=== PATIENT | male | born 1960 | race Caucasian/White ===

== ENCOUNTER 2016-09-30 18:22 | Emergency (ER) | payer OTHER ==
[~2016-09-30] VITALS: Ht 180.3 cm; Wt 65.8 kg
--- NOTE | 2016-09-30 19:20 | ED Abdominal Pain ---
General Chief Complaint: -Male Stated Complaint: PT FELL X3 DAYS AGO/HERNIA Nursing Triage Note: PT REPORTS HE FELL ON 09/27/16 WHILE IN THE SHOWER AT [facility] INJURING HIS R TESTICLE. HE REPORTS SEEING JOSELIN GRAY AT [facility] TODAY AND WAS DX WITH INGUINAL HERNIA. HE REPORTS PAIN AND SWELLING TO AFFECTED AREA. Sepsis Screen: No Definite Risk Source of Information: Patient Exam Limitations: No Limitations History of Present Illness Time Seen By Provider: 19:16 Initial Comments patient reports he was in the shower and fell about 4 days ago on Tuesday and at that time he felt something fall into his scrotum large mass that was quite painful at the time. He has had a history of a hernia on his left side when he was 16 years old status post repair and is never bothered him since. He went to urgent care via [facility] and the personally saw him there told him he would maybe need surgery to repair this and sent him to the ER. He says he is having a mild amount of discomfort whenever he stands up or moves around with it but it is not painful just lying in bed and he does not require any pain meds. He denies nausea. He had a bowel movement this morning that was easy to pass. He is having no problems urinating or discharge. He denies fevers chills or nausea. Allergies and Home Medications Allergies Coded Allergies: No Known Drug Allergies (Unverified , 11/03/15) Home Medications No Active Prescriptions or Reported Meds Review of Systems Constitutional: No chills, No diaphoresis, No fever Respiratory: Denies Shortness of Air, Denies Wheezing Cardiovascular: Denies Chest Pain, Denies Irregular Heart Rate, Denies Lightheadedness, Denies Palpitations, Denies Syncope Gastrointestinal: Denies Abdomen Distended, Denies Abdominal Pain, Denies Constipated, Denies Diarrhea, Denies Nausea Genitourinary: See HPI, Denies Burning, Denies Discharge, Denies Drainage, Pain Musculoskeletal: No back pain, No joint pain Skin: No pruritus, No rash Psychiatric/Neurological: Denies Headache, Denies Numbness Past [id number]-[id number] Hx Patient Social History Alcohol Use: Denies Use Recreational Drug Use: No Smoking Status: Current Everyday Smoker Type Used: Cigarettes 2nd Hand Smoke Exposure: No Recent Foreign Travel: No Contact w/Someone Who Travel: No Recent Infectious Disease Expo: No Recent Hopitalizations: No Surgeries HX Surgeries: No Respiratory Hx Respiratory Disorders: Yes Respiratory Disorders: Emphysema Cardiovascular Hx Cardiac Disorders: No Neurological Hx Neurological Disorders: No Reproductive System Hx Reproductive Disorders: No Genitourinary Hx Genitourinary Disorders: No Gastrointestinal Hx Gastrointestinal Disorders: No Musculoskeletal Hx Musculoskeletal Disorders: No Endocrine Hx Endocrine Disorders: No HEENT HX ENT Disorders: No Cancer Hx Cancer: No Psychosocial Hx Psychiatric Problems: No Integumentary HX Skin/Integumentary Disorder: No Blood Transfusions Hx Blood Disorders: No Physical Exam Vital Signs VS - Last 72 Hours, by Label 09/30/16 09/30/16 18:40 22:55 Temp 97.4 97.0 Pulse 82 75 Resp 18 18 B/P (MAP) 174/96 Pulse Ox 97 97 O2 Delivery Room Air Room Air Capillary Refill : Less Than 3 Seconds General Appearance: WD/WN, no apparent distress HEENT: PERRL/EOMI, pharynx normal Respiratory: lungs clear, normal breath sounds Cardiovascular: regular rate, rhythm, no edema Gastrointestinal: normal bowel sounds, non tender, soft, hernia (right sided direct inguinal hernia with soft mobile rubbery mass in scrotum), No mass Genital/Rectal: tenderness (mild), other (to normal size testes and uncircumcised penis without discharge pain lesion) Extremities: normal inspection, normal capillary refill Neurologic/Psychiatric: alert, oriented x 3 Skin: normal color, warm/dry Focused Exam Lactic Acid Level Laboratory Tests Test 09/30/16 19:52 Lactic Acid Level 1.25 MMOL/L (0.50-2.00) Progress/Results/Core Measures Results/Orders Lab Results Laboratory Tests Test 09/30/16 19:09 09/30/16 19:52 Range/Units Urine Color YELLOW Urine Clarity CLEAR Urine pH 7 5-9 Urine Specific Dike 1.010 L 1.016-1.022 Urine Protein NEGATIVE NEGATIVE Urine Glucose (UA) NEGATIVE NEGATIVE Urine Ketones NEGATIVE NEGATIVE Urine Nitrite NEGATIVE NEGATIVE Urine Bilirubin NEGATIVE NEGATIVE Urine Urobilinogen NORMAL NORMAL MG/DL Urine Leukocyte Esterase NEGATIVE NEGATIVE Urine RBC (Auto) NEGATIVE NEGATIVE Urine RBC RARE /HPF Urine WBC RARE /HPF Urine Crystals NONE /LPF Urine Bacteria NEGATIVE /HPF Urine Casts NONE /LPF Urine Mucus NEGATIVE /LPF Urine Culture Indicated NO White Blood Count 9.1 4.3-11.0 10^3/uL Red Blood Count 4.93 4.35-5.85 10^6/uL Hemoglobin 15.5 13.3-17.7 G/DL Hematocrit 44 40-54 % Mean Corpuscular Volume 90 80-99 FL Mean Corpuscular Hemoglobin 31 25-34 PG Mean Corpuscular Hemoglobin Concent 35 32-36 G/DL Red Cell Distribution Width 12.6 10.0-14.5 % Platelet Count 260 130-400 10^3/uL Mean Platelet Volume 9.5 7.4-10.4 FL Neutrophils (%) (Auto) 68 42-75 % Lymphocytes (%) (Auto) 23 12-44 % Monocytes (%) (Auto) 7 0-12 % Eosinophils (%) (Auto) 1 0-10 % Basophils (%) (Auto) 0 0-10 % Neutrophils # (Auto) 6.2 1.8-7.8 X 10^3 Lymphocytes # (Auto) 2.1 1.0-4.0 X 10^3 Monocytes # (Auto) 0.6 0.0-1.0 X 10^3 Eosinophils # (Auto) 0.1 0.0-0.3 10^3/uL Basophils # (Auto) 0.0 0.0-0.1 10^3/uL Sodium Level 139 135-145 MMOL/L Potassium Level 4.1 3.6-5.0 MMOL/L Chloride Level 106 98-107 MMOL/L Carbon Dioxide Level 25 21-32 MMOL/L Anion Gap 8 5-14 MMOL/L Blood Urea Nitrogen 16 7-18 MG/DL Creatinine 0.87 0.60-1.30 MG/DL Estimat Glomerular Filtration Rate > 60 BUN/Creatinine Ratio 18 Glucose Level 134 H 70-105 MG/DL Lactic Acid Level 1.25 0.50-2.00 MMOL/L Calcium Level 9.3 8.5-10.1 MG/DL Total Bilirubin 0.2 0.1-1.0 MG/DL Aspartate Amino Transf (AST/SGOT) 20 5-34 U/L Alanine Aminotransferase (ALT/SGPT) 29 0-55 U/L Alkaline Phosphatase 84 40-136 U/L Total Protein 7.2 6.4-8.2 GM/DL Albumin 3.9 3.2-4.5 GM/DL My Orders Orders - LUPE,KOLTON J Ua Culture If Indicated (09/30/16 19:11) Cbc With Automated Diff (09/30/16 19:21) Comprehensive Metabolic Panel (09/30/16 19:21) Lactic Acid Analyzer (09/30/16 19:21) Us Scrotum (Testicle) [id number] (09/30/16 19:21) Ns Iv 1000 Ml (Sodium Chloride 0.9%) (09/30/16 20:17) Ct Abdomen/Pelvis W (09/30/16 20:32) Iohexol Injection (Omnipaque 350 Mg/Ml 1 (09/30/16 20:45) Ns (Ivpb) (Sodium Chloride 0.9% Ivpb Bag (09/30/16 20:45) Medications Given in ED Current Medications Medications Dose Ordered Sig/Josh Route Start Time Stop Time Status Last Admin Dose Admin Iohexol 100 ml ONCE ONCE IV 09/30/16 20:45 09/30/16 20:46 DC 09/30/16 21:32 100 ML Sodium Chloride 100 ml ONCE ONCE IV 09/30/16 20:45 09/30/16 20:46 DC 09/30/16 21:32 80 ML Sodium Chloride 1,000 ml @ 0 mls/hr Q0M ONCE IV 09/30/16 20:17 09/30/16 20:18 DC 09/30/16 20:30 0 MLS/HR Vital Signs/I&O Vital Sign - Last 12Hours 09/30/16 09/30/16 18:40 22:55 Temp 97.4 97.0 Pulse 82 75 Resp 18 18 B/P (MAP) 174/96 Pulse Ox 97 97 O2 Delivery Room Air Room Air Intake and Output 10/01/16 00:00 Intake Total 1000 ml Balance 1000 ml Blood Pressure Mean: 122 Progress Note : Time: 01:13 Progress Note Ascertain there was no evidence of bowel incarceration. Spoke with surgeon and will have him set up for surgery follow-up Tuesday. He will call tomorrow morning to his PCP and get the adrenal mass worked up. Diagnostic Imaging Diagonstic Imaging: Ultrasound Plain Films/CT/US/NM/MRI: other (scrotum) Comments VIA [facility], [facility]. [place], [place] NAME: FAHEEM RICHEY MED REC#: [id number] PT STATUS: REG ER : 1960 PHYSICIAN: KOLTON ANDRADE MD ADMIT DATE: 09/30/16/ER Draft Date of Exam:09/30/16 US SCROTUM (Testicle) [id number] INDICATION: Question right testicular hernia. EXAMINATION: Ultrasound scrotum dated 09/30/2016. FINDINGS: The right testicle is 3.6 x 1.4 x 2.7 cm in size and the left is 3 x 1.7 x 2.2 cm. There is bilateral symmetric blood flow to the testes. The epididymides are bilaterally symmetric as well. Per the student recruiter, evaluation is limited due to the patient's inability to hold still for imaging. There does appear to be an abnormality extending into the right inguinal region per the student recruiter; likely a hernia, but no peristalsis is seen to suggest bowel. IMPRESSION: 1. Likely right-sided inguinal hernia although the images are limited due to motion. Definite bowel extension into the inguinal region not seen but difficult to exclude on these images and clinical follow-up would be recommended with further imaging as clinically warranted. 2. No acute abnormality seen in either testicle. Dictated on workstation # [id number] Dict: 09/30/161944 Trans: 09/30/161951 [id number] Interpreted by: SHARON HOROWITZ MD Electronically signed by: Reviewed: Reviewed by Pa Diagonstic Imaging: CT Plain Films/CT/US/NM/MRI: abdomen, pelvis Comments NAME: FAHEEM RICHEY Treva MED REC#: [id number] PT STATUS: REG ER : 1960 PHYSICIAN: KOLTON ANDRADE MD ADMIT DATE: 09/30/16/ER Draft Date of Exam:09/30/16 CT ABDOMEN/PELVIS W INDICATION: Fell four days ago. Pain and swelling. EXAMINATION: CT of the abdomen and the pelvis, 09/30/2016. COMPARISON: Correlation made to recent sonogram of the scrotum. FINDINGS: Within the right aspect of the scrotal region there is a very large predominantly fatty appearing area, likely a fat-containing hernia. This extends down towards the scrotum. Its visualized aspects measure at least 5.3 cm in transverse dimension and 5.4 cm in AP dimension. This appears to extend from the intraperitoneal fat contiguous with the inguinal canal, consistent with a very large hernia. Given the recent injury, it could be a posttraumatic finding but clinical correlation is recommended. Within the remaining abdomen and pelvis the liver demonstrates mild fatty infiltration. The gallbladder and spleen appear normal. The left adrenal gland contains a large heterogeneous lesion which measures 2.7 cm in greatest dimension. Right adrenal gland is unremarkable. Kidneys contain tiny cystic changes too small to characterize at this time. There are multiple nonspecific enlarged lymph nodes within the retroperitoneum. The pancreas is unremarkable. Bowel loops demonstrate findings of constipation. The appendix is unremarkable. There is diffuse atherosclerotic disease along the aorta and its branches. The small bowel loops demonstrate mild wall thickening proximally, nonspecific, perhaps due to enteritis, correlate with symptoms. No free air or free fluid is seen in the abdomen or pelvis. There is emphysematous disease in the visualized lungs with atelectasis or scar in the medial right lung base. There is no acute osseous abnormality. IMPRESSION: 1. Large fatty lesion in the right scrotum and inguinal canal, likely all due to a fat-containing inguinal hernia, which could be posttraumatic given the history. Clinical correlation and followup is recommended. A fatty mass is felt to be less likely but again followup should be performed. 2. Lymphadenopathy within the retroperitoneum which is a nonspecific finding and could be on the basis of an inflammatory or infectious process but a metastatic process is not excluded. 3. Lesion in the left adrenal gland. A dedicated adrenal protocol CT is recommended for better characterization. 4. Other incidental findings within the visualized abdomen and pelvis, possible changes of enteritis are noted, as discussed above, correlate with symptoms. Dictated on workstation # [id number] Dict: 09/30/16 2154 Trans: 09/30/16 2210 [facility] [id number] Interpreted by: SHARON HOROWITZ MD Reviewed: Reviewed by Me Consults Consults : Consulting Physician: CHRIS CONLEY DO Consults Notes Discussed the case and he recommends calling the office in the morning and getting set up for an appointment Tuesday. Departure Impression Impression: Primary Impression: Direct inguinal hernia Disposition: 01 HOME, SELF-CARE Condition: Stable Departure-Patient Inst. Decision time for Depature: 22:49 Referrals: LUIS F PAGE DO (PCP) Primary Care Physician ISAAC,TANNER T DIRECTOR CAMP (Family) Primary Care Physician Patient Instructions: Groin Hernia (DC) Add. Discharge Instructions: You do have a hernia of fat tissue down into your scrotum that does not appear to contain any bowel. If he started having a hard time passing a bowel movement or eat or having exquisite amount of pain that is not controlled with just Tylenol ibuprofen or gentle heat applied to the area then you should probably return to the ER immediately as this could be an emergency. I spoke with Dr. Conley, General Surgery who recommends that you call his office in the morning at [phone]. Ask them for an appointment to see the surgeon on Tuesday. On CT scan there was an incidental finding of a mass on your adrenal gland that will need to be addressed by Dr. Smith at [facility]. Please call the office tomorrow morning and get an appointment within next 1-2 weeks to work this up. It will require more imaging, specifically an adrenal study. All discharge instructions reviewed with patient and/or family. Voiced understanding. Scripts No Active Prescriptions or Reported Meds Copy Copies To 1: LUIS F PAGE TITUS J Sep 30, 2016 19:20
[2016-09-30 19:29] LABS: BILIRUBIN,URINE NEGATIVE (NEGATIVE); KETONES,URINE NEGATIVE (NEGATIVE); LEUKOCYTE ESTERASE ,URINE NEGATIVE (NEGATIVE); NITRITE,URINE NEGATIVE (NEGATIVE); PH,URINE 7 (5-9); PROTEIN,URINE NEGATIVE (NEGATIVE); UROBILINOGEN,URINE NORMAL (NORMAL)
[2016-09-30 19:30] LABS: WBC,URINE RARE /HPF
--- NOTE | 2016-09-30 19:53 | Diagnostic Imaging Report ---
INDICATION: Question right testicular hernia. EXAMINATION: Ultrasound scrotum dated 09/30/2016. FINDINGS: The right testicle is 3.6 x 1.4 x 2.7 cm in size and the left is 3 x 1.7 x 2.2 cm. There is bilateral symmetric blood flow to the testes. The epididymides are bilaterally symmetric as well. Per the senior paralegal, evaluation is limited due to the patient's inability to hold still for imaging. There does appear to be an abnormality extending into the right inguinal region per the senior paralegal; likely a hernia, but no peristalsis is seen to suggest bowel. IMPRESSION: 1. Likely right-sided inguinal hernia although the images are limited due to motion. Definite bowel extension into the inguinal region not seen but difficult to exclude on these images and clinical follow-up would be recommended with further imaging as clinically warranted. 2. No acute abnormality seen in either testicle. Dictated by: Dictated on workstation # [id number]
[2016-09-30 20:02] LABS: BASOPHILS % (AUTO) 0 % (0-10); EOSINOPHILS # (AUTO) 0.1 10^3/uL (0.0-0.3); EOSINOPHILS % (AUTO) 1 % (0-10); LYMPHOCYTES # (AUTO) 2.1 X 10^3 (1.0-4.0); LYMPHOCYTES % (AUTO) 23 % (12-44); MEAN CORPUSCULAR HEMOGLOBIN 31 PG (25-34); MEAN CORPUSCULAR HGB CONC 35 G/DL (32-36); MEAN CORPUSCULAR VOLUME 90 FL (80-99); MEAN PLATELET VOLUME 9.5 FL (7.4-10.4); MONOCYTES # (AUTO) 0.6 X 10^3 (0.0-1.0); MONOCYTES % (AUTO) 7 % (0-12); NEUTROPHILS # (AUTO) 6.2 X 10^3 (1.8-7.8); NEUTROPHILS % (AUTO) 68 % (42-75); PLATELET COUNT 260 10^3/uL (130-400); RED BLOOD COUNT 4.93 10^6/uL (4.35-5.85); RED CELL DISTRIBUTION WIDTH 12.6 % (10.0-14.5); WHITE BLOOD COUNT 9.1 10^3/uL (4.3-11.0)
[2016-09-30] MEDS ORDERED: NS IV 1000 ML 1,000 ML IV ONE (20:17)
[2016-09-30 20:23] LABS: ALANINE AMINOTRANSFERASE 29 U/L (0-55); ALBUMIN 3.9 GM/DL (3.2-4.5); ANION GAP 8 MMOL/L (5-14); ASPARTATE AMINO TRANSFERASE 20 U/L (5-34); BILIRUBIN,TOTAL 0.2 MG/DL (0.1-1.0); BLOOD UREA NITROGEN 16 MG/DL (7-18); BUN/CREATININE RATIO 18; CALCIUM 9.3 MG/DL (8.5-10.1); CARBON DIOXIDE 25 MMOL/L (21-32); CHLORIDE 106 MMOL/L (98-107); CREATININE SERUM 0.87 MG/DL (0.60-1.30); GFR ESTIMATED > 60; GLUCOSE 134 MG/DL (70-105); POTASSIUM 4.1 MMOL/L (3.6-5.0); SODIUM 139 MMOL/L (135-145); TOTAL PROTEIN 7.2 GM/DL (6.4-8.2)
[2016-09-30] MEDS ORDERED: NS 100 ML (IVPB) BAG IV ONE (20:45)
[2016-09-30] MEDS ORDERED: IOHEXOL 350 MG/ML 100 ML (OMNIPAQUE 350) VIAL IV ONE (20:45)
--- NOTE | 2016-09-30 22:10 | Diagnostic Imaging Report ---
INDICATION: Fell four days ago. Pain and swelling. EXAMINATION: CT of the abdomen and the pelvis, 09/30/2016. COMPARISON: Correlation made to recent sonogram of the scrotum. FINDINGS: Within the right aspect of the scrotal region there is a very large predominantly fatty appearing area, likely a fat-containing hernia. This extends down towards the scrotum. Its visualized aspects measure at least 5.3 cm in transverse dimension and 5.4 cm in AP dimension. This appears to extend from the intraperitoneal fat contiguous with the inguinal canal, consistent with a very large hernia. Given the recent injury, it could be a posttraumatic finding but clinical correlation is recommended. Within the remaining abdomen and pelvis the liver demonstrates mild fatty infiltration. The gallbladder and spleen appear normal. The left adrenal gland contains a large heterogeneous lesion which measures 2.7 cm in greatest dimension. Right adrenal gland is unremarkable. Kidneys contain tiny cystic changes too small to characterize at this time. There are multiple nonspecific enlarged lymph nodes within the retroperitoneum. The pancreas is unremarkable. Bowel loops demonstrate findings of constipation. The appendix is unremarkable. There is diffuse atherosclerotic disease along the aorta and its branches. The small bowel loops demonstrate mild wall thickening proximally, nonspecific, perhaps due to enteritis, correlate with symptoms. No free air or free fluid is seen in the abdomen or pelvis. There is emphysematous disease in the visualized lungs with atelectasis or scar in the medial right lung base. There is no acute osseous abnormality. IMPRESSION: 1. Large fatty lesion in the right scrotum and inguinal canal, likely all due to a fat-containing inguinal hernia, which could be posttraumatic given the history. Clinical correlation and followup is recommended. A fatty mass is felt to be less likely but again followup should be performed. 2. Lymphadenopathy within the retroperitoneum which is a nonspecific finding and could be on the basis of an inflammatory or infectious process but a metastatic process is not excluded. 3. Lesion in the left adrenal gland. A dedicated adrenal protocol CT is recommended for better characterization. 4. Other incidental findings within the visualized abdomen and pelvis, possible changes of enteritis are noted, as discussed above, correlate with symptoms. Dictated by: Dictated on workstation # [id number]
[2016-09-30 22:55] VITALS: BP 130/96
--- OUTSIDE RECORDS SUMMARY | 2016-10-05 04:42 | XMS REPORT | Continuity of Care Document ---
Author Author [facility] Organization [facility] Address Unknown Phone Unavailable Allergies Active Description Code Type Severity Reaction Onset Reported/Identified Relationship to Patient Clinical Status Yes codeine Drug Allergy N/A N/A 07/18/2013 Yes No Known Drug Allergies [id number] Drug Allergy Unknown N/ A 11/03/2015 Medications Problems Date Dx Coded Attending Type Code Diagnosis Diagnosed By 07/18/2013 OLVIN PATRICK MD N 491.21 BRONCHITIS AECB 07/18/2013 OLVIN PATRICK MD N 496 CHRONIC AIRWAY OBSTRUCTION NOT ELSEWHERE CLASSIFIED 07/18/2013 OLVIN PATRICK MD N 715.16 OSTEOARTHROSIS LOCALIZED PRIMARY INVOLVING LOWER LEG 07/18/2013 OLVIN PATRICK MD N 726.19 OTHER SPECIFIED DISORDERS OF BURSAE AND TENDONS IN SHOULDER REGION 07/18/2013 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, 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 L 491.21 BRONCHITIS AECB 07/18/2013 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, LEATHA L 496 CHRONIC AIRWAY OBSTRUCTION NOT ELSEWHERE CLASSIFIED 07/18/2013 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, 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 L 715.16 OSTEOARTHROSIS LOCALIZED PRIMARY INVOLVING LOWER LEG 07/18/2013 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, 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 L 726.19 OTHER SPECIFIED DISORDERS OF BURSAE AND TENDONS IN SHOULDER REGION 07/19/2013 OLVIN PATRICK MD N 272.4 HYPERLIPIDEMIA 07/19/2013 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, 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 L 272.4 HYPERLIPIDEMIA 03/12/2014 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, 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 L 719.46 PAIN IN JOINT INVOLVING LOWER LEG 11/03/2015 TANNER KAMARA DO, Ot F12.10 CANNABIS ABUSE, UNCOMPLICATED 11/03/2015 TANNER KAMARA DO, Ot F15.10 OTHER STIMULANT ABUSE, UNCOMPLICATED 11/03/2015 TANNER KAMARA DO Ot R55 SYNCOPE AND COLLAPSE 11/04/2015 TANNER KAMARA DO, Ot F12.10 CANNABIS ABUSE, UNCOMPLICATED 11/04/2015 ANH DO, TANNER D Ot F15.10 OTHER STIMULANT ABUSE, UNCOMPLICATED 11/04/2015 TANNER KAMARA DO Ot R55 SYNCOPE AND COLLAPSE 11/05/2015 TANNER KAMARA DO Ot F12.10 CANNABIS ABUSE, UNCOMPLICATED 11/05/2015 TANNER KAMARA DO Ot F15.10 OTHER STIMULANT ABUSE, UNCOMPLICATED 11/05/2015 TANNER KAMARA DO Ot R55 SYNCOPE AND COLLAPSE Procedures Code Description [place] [address] ROUTINE VENIPUNCTURE 07/18/2013 38713 A1C (IN-HOUSE) 00967 LIPID PANEL 07/18 21139 XRAY KNEE RIGHT 3 VIEWS 07/18/2013 89131 OXIMETRY 2013 84642 XRAY KNEE LEFT 3 VIEWS 03/12/2014 JAYY RUTH 03/12/2014 Results Test Result Range Complete blood count (CBC) with automated white blood cell (WBC) differential - 11/03/15 13:20 Blood leukocytes automated count (number/volume) 4.9 10*3/ uL 4.3-11.0 Blood erythrocytes automated count (number/volume) 4.61 10*6 /uL 4.35-5.85 Venous blood hemoglobin measurement (mass/volume) 14.7 g/dL 13.3-17.7 Blood hematocrit (volume fraction) 42 % 40-54 Automated erythrocyte mean corpuscular volume 90 [foz_us] 80-99 Automated erythrocyte mean corpuscular hemoglobin (mass per erythrocyte) 32 pg 25-34 Automated erythrocyte mean corpuscular hemoglobin concentration measurement ( mass/volume) 35 g/dL 32-36 Automated erythrocyte distribution width ratio 13.1 % 10.0-14.5 Automated blood platelet count (count/volume) 258 10*3/uL 130-400 Automated blood platelet mean volume measurement 9.3 [foz_us ] 7.4-10.4 Automated blood neutrophils/100 leukocytes 58 % 42-75 Automated blood lymphocytes/100 leukocytes 28 % 12-44 Blood monocytes/100 leukocytes 10 % 0-12 Automated blood eosinophils/100 leukocytes 4 % 0-10 Automated blood basophils/100 leukocytes 1 % 0-10 Blood neutrophils automated count (number/volume) 2.8 10*3 1.8-7.8 Blood lymphocytes automated count (number/volume) 1.4 10*3 1.0-4.0 Blood monocytes automated count (number/volume) 0.5 10*3 0.0-1.0 Automated eosinophil count 0.2 10*3/uL 0.0-0.3 Automated blood basophil count (count/volume) 0.0 10*3/uL 0.0-0.1 Fibrin D-dimer FEU measurement in platelet poor plasma (mass/volume) - 13:20 Fibrin D-dimer FEU measurement in platelet poor plasma (mass/volume) < ug/mL 0.00-0.49 Comprehensive metabolic panel - 11/03/15 13:20 Serum or plasma sodium measurement (moles/volume) 135 mmol/ L 135-145 Serum or plasma potassium measurement (moles/volume) 3.6 mmol/L 3.6-5.0 Serum or plasma chloride measurement (moles/volume) 105 mmol /L 98-107 Carbon dioxide 26 mmol/L 21-32 Serum or plasma anion gap determination (moles/volume) 4 mmol/L 5-14 Serum or plasma urea nitrogen measurement (mass/volume) 12 mg/dL 7-18 Serum or plasma creatinine measurement (mass/volume) 0.79 mg /dL 0.60-1.30 Serum or plasma urea nitrogen/creatinine mass ratio 15 NRG Serum or plasma creatinine measurement with calculation of estimated glomerular filtration rate > NRG Serum or plasma glucose measurement (mass/volume) 136 mg/dL 70-105 Serum or plasma calcium measurement (mass/volume) 8.1 mg/dL 8.5-10.1 Serum or plasma total bilirubin measurement (mass/volume) 0.3 mg/dL 0.1-1.0 Serum or plasma alkaline phosphatase measurement (enzymatic activity/volume) 78 U/L 40-136 Serum or plasma aspartate aminotransferase measurement (enzymatic activity/ volume) 14 U/L 5-34 Serum or plasma alanine aminotransferase measurement (enzymatic activity/volume ) 14 U/L 0-55 Serum or plasma protein measurement (mass/volume) 6.2 g/dL 6.4-8.2 Serum or plasma albumin measurement (mass/volume) 3.5 g/dL 3.2-4.5 Magnesium - 11/03/15 13:20 Magnesium 2.0 mg/dL 1.8-2.4 Serum or plasma creatine kinase measurement (enzymatic activity/volume) - 11/02 13:20 Serum or plasma creatine kinase measurement (enzymatic activity/volume) 99 U/L 30-200 Serum or plasma troponin i.cardiac measurement (mass/volume) - 11/03/15 13:20 Serum or plasma troponin i.cardiac measurement (mass/volume) < ng/mL <0.30 Serum or plasma ethanol measurement (mass/volume) - 11/03/15 13:20 Serum or plasma ethanol measurement (mass/volume) < mg/dL <10 Complete urinalysis with reflex to culture - 11/03/15 15:21 Urine color determination YELLOW NRG Urine clarity determination CLEAR NRG Urine pH measurement by test strip 7 5- 9 Specific gravity of urine by test strip 1.010 1.016-1.022 Urine protein assay by test strip, semi-quantitative NEGATIVE NEGATIVE Urine glucose detection by automated test strip NEGATIVE NEGATIVE Erythrocytes detection in urine sediment by light microscopy NEGATIVE NEGATIVE Urine ketones detection by automated test strip NEGATIVE NEGATIVE Urine nitrite detection by test strip NEGATIVE NEGATIVE Urine total bilirubin detection by test strip NEGATIVE NEGATIVE Urine urobilinogen measurement by automated test strip (mass/volume) NORMAL NORMAL Urine leukocyte esterase detection by dipstick NEGATIVE NEGATIVE Automated urine sediment erythrocyte count by microscopy (number/high power field) NONE NRG Automated urine sediment leukocyte count by microscopy (number/high power field ) NONE NRG Bacteria detection in urine sediment by light microscopy NEGATIVE NRG Squamous epithelial cells detection in urine sediment by light microscopy NONE NRG Crystals detection in urine sediment by light microscopy NONE NRG Casts detection in urine sediment by light microscopy NONE NRG Mucus detection in urine sediment by light microscopy NEGATIVE NRG Complete urinalysis with reflex to culture NO NRG Urine drug screening test - 11/03/15 15:21 Urine acetaminophen detection by screening method NEGATIVE NEGATIVE Urine phencyclidine detection by screening method NEGATIVE NEGATIVE Urine benzodiazepines detection by screening method NEGATIVE NEGATIVE Urine cocaine detection NEGATIVE NEGATIVE Urine amphetamines detection by screening method NEGATIVE NEGATIVE Urine methamphetamine detection by screening method POSITIVE NEGATIVE Urine cannabinoids detection by screening method POSITIVE NEGATIVE Urine opiates detection by screening method NEGATIVE NEGATIVE Urine barbiturates detection NEGATIVE NEGATIVE Screening urine tricyclic antidepressants detection NEGATIVE NEGATIVE Urine methadone detection by screening method NEGATIVE NEGATIVE Complete urinalysis with reflex to culture - 09/30/16 19:09 Urine color determination YELLOW NRG Urine clarity determination CLEAR NRG Urine pH measurement by test strip 7 5- 9 Specific gravity of urine by test strip 1.010 1.016-1.022 Urine protein assay by test strip, semi-quantitative NEGATIVE NEGATIVE Urine glucose detection by automated test strip NEGATIVE NEGATIVE Erythrocytes detection in urine sediment by light microscopy NEGATIVE NEGATIVE Urine ketones detection by automated test strip NEGATIVE NEGATIVE Urine nitrite detection by test strip NEGATIVE NEGATIVE Urine total bilirubin detection by test strip NEGATIVE NEGATIVE Urine urobilinogen measurement by automated test strip (mass/volume) NORMAL NORMAL Urine leukocyte esterase detection by dipstick NEGATIVE NEGATIVE Automated urine sediment erythrocyte count by microscopy (number/high power field) RARE NRG Automated urine sediment leukocyte count by microscopy (number/high power field ) RARE NRG Bacteria detection in urine sediment by light microscopy NEGATIVE NRG Crystals detection in urine sediment by light microscopy NONE NRG Casts detection in urine sediment by light microscopy NONE NRG Mucus detection in urine sediment by light microscopy NEGATIVE NRG Complete urinalysis with reflex to culture NO NRG Complete blood count (CBC) with automated white blood cell (WBC) differential - 09/30/16 19:52 Blood leukocytes automated count (number/volume) 9.1 10*3/ uL 4.3-11.0 Blood erythrocytes automated count (number/volume) 4.93 10*6 /uL 4.35-5.85 Venous blood hemoglobin measurement (mass/volume) 15.5 g/dL 13.3-17.7 Blood hematocrit (volume fraction) 44 % 40-54 Automated erythrocyte mean corpuscular volume 90 [foz_us] 80-99 Automated erythrocyte mean corpuscular hemoglobin (mass per erythrocyte) 31 pg 25-34 Automated erythrocyte mean corpuscular hemoglobin concentration measurement ( mass/volume) 35 g/dL 32-36 Automated erythrocyte distribution width ratio 12.6 % 10.0-14.5 Automated blood platelet count (count/volume) 260 10*3/uL 130-400 Automated blood platelet mean volume measurement 9.5 [foz_us ] 7.4-10.4 Automated blood neutrophils/100 leukocytes 68 % 42-75 Automated blood lymphocytes/100 leukocytes 23 % 12-44 Blood monocytes/100 leukocytes 7 % 0-12 Automated blood eosinophils/100 leukocytes 1 % 0-10 Automated blood basophils/100 leukocytes 0 % 0-10 Blood neutrophils automated count (number/volume) 6.2 10*3 1.8-7.8 Blood lymphocytes automated count (number/volume) 2.1 10*3 1.0-4.0 Blood monocytes automated count (number/volume) 0.6 10*3 0.0-1.0 Automated eosinophil count 0.1 10*3/uL 0.0-0.3 Automated blood basophil count (count/volume) 0.0 10*3/uL 0.0-0.1 Blood lactic acid measurement (moles/volume) - 09/30/16 19:52 Blood lactic acid measurement (moles/volume) 1.25 mmol/L 0.50-2.00 Comprehensive metabolic panel - 09/30/16 19:52 Serum or plasma sodium measurement (moles/volume) 139 mmol/ L 135-145 Serum or plasma potassium measurement (moles/volume) 4.1 mmol/L 3.6-5.0 Serum or plasma chloride measurement (moles/volume) 106 mmol /L 98-107 Carbon dioxide 25 mmol/L 21-32 Serum or plasma anion gap determination (moles/volume) 8 mmol/L 5-14 Serum or plasma urea nitrogen measurement (mass/volume) 16 mg/dL 7-18 Serum or plasma creatinine measurement (mass/volume) 0.87 mg /dL 0.60-1.30 Serum or plasma urea nitrogen/creatinine mass ratio 18 NRG Serum or plasma creatinine measurement with calculation of estimated glomerular filtration rate > NRG Serum or plasma glucose measurement (mass/volume) 134 mg/dL 70-105 Serum or plasma calcium measurement (mass/volume) 9.3 mg/dL 8.5-10.1 Serum or plasma total bilirubin measurement (mass/volume) 0.2 mg/dL 0.1-1.0 Serum or plasma alkaline phosphatase measurement (enzymatic activity/volume) 84 U/L 40-136 Serum or plasma aspartate aminotransferase measurement (enzymatic activity/ volume) 20 U/L 5-34 Serum or plasma alanine aminotransferase measurement (enzymatic activity/volume ) 29 U/L 0-55 Serum or plasma protein measurement (mass/volume) 7.2 g/dL 6.4-8.2 Serum or plasma albumin measurement (mass/volume) 3.9 g/dL 3.2-4.5 Encounters ACCT No. Visit Date/Time Discharge Status Pt. Type Provider Facility Loc./Unit Complaint [id number] 09/30/2016 18:24:00 2016 22:55:00 DIS Emergency LUPE SCHROEDER, KOLTON Dasilva [facility] ER PT FELL X3 DAYS AGO/HERNIA [id number] 11/03/2015 13:46:00 2015 16:00:00 DIS Emergency TANNER KAMARA DO [facility] ER DIZZINESS/POSS SYNCOPAL EPISODE [id number] 06/21/2013 11:13:00 2013 23:59:59 CLS Outpatient
== END 2016-09-30 22:55 | disposition home or self-care (01) ==
LOC: EDUNIT# 18:22 → ER 18:24
DX: K40.90 Unilateral inguinal hernia, without obstruction or gangrene, not specified as recurrent (principal); J43.9 Emphysema, unspecified; F17.210 Nicotine dependence, cigarettes, uncomplicated; Z98.890 Other specified postprocedural states
CPT/HCPCS: 36415; 74177; 76870; 80053; 81000; 83605; 85025; 96360; 99282

== ENCOUNTER 2016-10-11 08:34 | Outpatient (CLI) | payer OTHER ==
[~2016-10-11] VITALS: Ht 180.3 cm; Wt 61.0 kg
[2016-10-11] MEDS ORDERED: RT-ALBUINH IH (14:10)
[2016-10-11 14:12] VITALS: BP 119/69
== END 2016-10-11 14:28 | disposition home or self-care (01) ==
LOC: PREOP 08:34
PROVIDERS: ATTEND Surgery
DX: Z01.818 Encounter for other preprocedural examination (principal); Z11.2 Encounter for screening for other bacterial diseases; K40.90 Unilateral inguinal hernia, without obstruction or gangrene, not specified as recurrent
CPT/HCPCS: 87081

== ENCOUNTER 2016-10-13 07:56 | Day surgery (SDC) | payer OTHER ==
[~2016-10-13] VITALS: Ht 180.3 cm; Wt 61.0 kg
[~2016-10-13 07:56] MED LIST: RT-ALBUINH IH
[2016-10-13] MEDS ORDERED: ceFAZolin 2 GM/NS 50 ML IV ONE (08:15)
[2016-10-13] MEDS ORDERED: CATHETER FLUSH 10 ML SYR IV PRN (08:15)
--- NOTE | 2016-10-13 08:18 | Progress Note-Pre Operative ---
Pre-Operative Progress Note H&P Reviewed The H&P was reviewed, patient examined and no changes noted. Time Seen by Provider: 08:12 Date H&P Reviewed: Oct 13, 2016 Time H&P Reviewed: 08:12 Pre-Operative Diagnosis: Incarcerated right inguinal hernia CHRIS CONLEY DO Oct 13, 2016 08:18
[2016-10-13 08:47] VITALS: BP 135/90
[2016-10-13] MEDS ORDERED: FAMOTIDINE 20MG/2ML IV (PEPCID) IV ONE (09:30)
[2016-10-13] MEDS ORDERED: LIDOCAINE/EPI 1%-1:200,000 (XYLOCAINE) 30 ML VIAL ONE (09:38)
[2016-10-13] MEDS ORDERED: ROCURONIUM 50 MG/5 ML (ZEMURON) VIAL IV ONE (09:39)
[2016-10-13] MEDS ORDERED: ONDANSETRON 4 MG/2 ML (SDV) Z0FRAN ONE (09:39)
[2016-10-13] MEDS ORDERED: LACTATED RINGERS 1,000 ML IV ONE ×2 (09:39→10:28)
[2016-10-13] MEDS ORDERED: LIDOCAINE PF 2% 5 ML (XYLOCAINE) VIAL ONE (09:39)
[2016-10-13] MEDS ORDERED: MIDAZOLAM 2 MG/2 ML (VERSED) VIAL ONE (09:39)
[2016-10-13] MEDS ORDERED: LIDOCAINE JELLY 2% (XYLOCAINE) 5 ML TUBE ONE (09:39)
[2016-10-13] MEDS ORDERED: proPOfol 200 MG/20 ML (DIPRIVAN) VIAL IV ONE (09:39)
[2016-10-13] MEDS ORDERED: fentaNYL INJECTION 100 MCG/2 ML AMP ONE (09:39)
[2016-10-13] MEDS: LACTATED RINGERS 1,000 ML IV PRN ×2 (09:55→10:30)
[2016-10-13] MEDS ORDERED: SEVOFLURANE (ULTANE) 15 ML INHAL SOLN ONE (10:28)
--- NOTE | 2016-10-13 10:39 | Progress Note-Post Operative ---
Post-Operative Progess Note Surgeon (s)/[facility] Nurse (s) Surgeon CHRIS CONLEY DO [place] Nurse: Edward Pre-Operative Diagnosis Incarcerated right inguinal hernia Post-Operative Diagnosis same, indirect with omentum in sac Procedure & Operative Findings Date of Procedure 10/13/16 Procedure Performed/Findings RIH with mesh Anesthesia Type GET 30ml of local Estimated Blood Loss Estimated blood loss (mL): scant Specimens/Packing Specimens Removed hernia sac CHRIS CONLEY DO Oct 13, 2016 10:39
[2016-10-13] MEDS ORDERED: HYDR-3812 PO (10:40)
--- NOTE | 2016-10-13 10:42 | Discharge Inst-Surgical ---
Discharge Inst-Surgical Depart Medication/Instructions New, Converted or Re-Newed RX: RX Given to Pt/Family Patient Instructions Follow up Appt: Make appointment for 1 week; [phone]. Instructions: No lifting greater than 10 pounds. No strenuous activity. May shower in 24 hours, no tub bath or soaking. Use incentive spirometer at home as directed. No Smoking Skin/Wound Care: May remove band-aids in am. Dermabond will fall off on its own. Symptoms to Report: Appetite Changes, Extremity Discoloration, Numbness/Tingling, Swelling Increased , Bleeding Excessive, Eyesight Changes, Pain Increased, Urine Color Change, Constipation(Persistent), Fever over 101 degree F, Pain/Pressure in chest, Urinating Difficulty, Cough Up/Vomit Blood, Heart Beat Irreg/Pounding, Pain/ Pressure in jaw, Vaginal Bleeding Increase, Cramps in feet or legs, Lightheadedness, Pain/Pressure in shoulder, Diarrhea(Persistent), Memory Changes Suddenly, Questions/Concerns, Weight gain consecutive days, Dizziness/ Fainting, Nausea/Vomiting, Shortness of Breath, Weight gain over 2 pounds. If questions or concerns contact your physician Or seek help at emergency department. Activity Activity as Tolerated: Yes Activity Instructions: Avoid Pulling & Pushing, Avoid Stress to Incision Driving Instructions: No Driving/Refer to Dr. Hernandez Discharge Diet: No Restrictions Diet After 24 Hours: Clear Liquid if Nauseous If Any Problems/Questions/Issu: Contact Your Physician, Go to Emergency Room Skin/Wound Care Infection Signs and Symptoms: Increased Redness, Foul Odor of Wound, Increased Drainage, Skin Itchy or Has a Rash, Increased Swelling, Temperature Above 101 F Bathing Instructions: Shower Operative Area Clean and Dry: Keep Incision Clean/Dry Stitches/[place]/Dermabond Dis: Dermabond Ice Pack: Ice On and Off Site CHRIS CONLEY DO Oct 13, 2016 10:42
[2016-10-13] MEDS ORDERED: morphine INJ 10 MG/ML 1ML (SYR OR VIAL) IVP PRN (11:00)
[2016-10-13] MEDS ORDERED: ONDANSETRON 4 MG/2 ML (SDV) Z0FRAN IVP PRN (11:00)
[2016-10-13] MEDS ORDERED: MEPERIDINE (DEMEROL) INJ 50 MG/ML IVP PRN (11:00)
[2016-10-13 11:55] VITALS: BP 126/80
[2016-10-13] MEDS ORDERED: HYDROcodone/APAP 5 MG/325 MG (LORTAB) TAB ONE (11:58)
--- NOTE | 2016-10-13 12:14 | OPERATIVE REPORT ---
PROCEDURE PHYSICIAN: CHRIS PEREIRA DATE OF PROCEDURE: 10/13/2016 PREOPERATIVE DIAGNOSIS: Right incarcerated inguinal hernia. POSTOPERATIVE DIAGNOSIS: Right incarcerated inguinal hernia. Indirect hernia with omentum in it. PROCEDURE: Right inguinal herniorrhaphy with mesh placement. SURGEON: Dr. Pereira INVENTORY ASSOCIATE AND DRIVER: Dr. Leon. ANESTHESIA: General endotracheal tube with approximately 30 mL of local injected by myself. SPECIMENS: Hernia sac. BLOOD LOSS: Scant. FLUIDS: Per anesthesia. POSTOPERATIVE CONDITION: : Stable. INDICATION FOR THE PROCEDURE: The patient is a 56-year-old male with a large incarcerated right inguinal hernia with pain and needing to get this fixed. FINDINGS: The patient had indirect inguinal hernia with omentum stuck down in the hernia sac. PROCEDURE NOTE: After informed consent was obtained patient brought to the operating room, placed on the table in supine position. He was sterilely prepped and draped in the normal fashion. Local lidocaine used for perform ilioinguinal nerve block as well as pubic tubercle block to infiltrate the right inguinal region with local. Then made an incision with a number 15 blade, carried down through skin into subcutaneous tissue. Then deepened down through the subcutaneous tissue with Bovie electrocautery down the fascia to the external oblique. The external oblique fascia then infiltrated with for local and incised to the external inguinal ring with Bovie electrocautery. Then able to get under the external oblique fascia to create space. Identified the ilioinguinal nerve and moved it out of the way. Had to open the hernia sac to get under the cord and cord structures. Opened the hernia sac and saw omentum. Pulled this out of the scrotum and then pushed it back up into the abdomen then able to get under the cord and cord structures. At the pubic tubercle, placed Gunnar drain pulled inferolateral direction and then grasped the hernia sac and started dissecting off the cord and cord structures. This was completely dissected off the cord and cord structures and suture ligated with 0 Vicryl and then tied with an 0 Vicryl. Cut the hernia sac with Bovie electrocautery watched it retract back into the abdomen and then passed the sac off the table. At this point then elected to close the floor of the inguinal canal with a 2-0 Vicryl [id number] suture and then simple suture and then placed a right sided Parietex mesh, sutured at the pubic tubercle with a 2-0 Vicryl encircled the cord with a precut hole and placed the rest of the mesh up under the external oblique fascia. It laid in nicely. Copiously irrigated with normal saline, suctioned this out and at this point then elected to close the external oblique fascia with 3-0 Vicryl running suture, thereby re-creating external inguinal ring, internal inguinal ring then re-created by the mesh. Closed the Devan's fascia with 3-0 Vicryl sutures. Then closed the skin with 4-0 undyed Monocryl in subcuticular fashion. The area was cleaned and dried. Dermabond placed as well as bandage. The patient was then transferred to recovery room in stable condition. Sponge, instrument and needle correct at the end of the case. Dr. Leon assisted in this case by identifying anatomy, holding instruments and then helped close the incision Job ID: [id number] Dictated Date: 10/13/2016 10:50:30 Machine [employer]k Screen Printer Date: 10/13/2016 11:54:11 / massimo
[2016-10-13] MEDS ORDERED: HYDROcodone/APAP 5 MG/325 MG (LORTAB) TAB PO ONE (12:15)
[2016-10-13 12:25] VITALS: BP 139/81
[2016-10-13 12:55] VITALS: BP 138/92
[2016-10-13 13:36] VITALS: BP 138/92
== END 2016-10-13 13:36 | disposition home or self-care (01) ==
LOC: SDC 07:56
PROVIDERS: ATTEND Surgery
DX: K40.30 Unilateral inguinal hernia, with obstruction, without gangrene, not specified as recurrent (principal); J44.9 Chronic obstructive pulmonary disease, unspecified; K21.9 Gastro-esophageal reflux disease without esophagitis
CPT/HCPCS: 94664

== ENCOUNTER 2016-12-15 19:31 | Emergency (ER) | payer OTHER ==
[~2016-12-15] VITALS: Ht 180.3 cm; Wt 61.0 kg
[~2016-12-15 19:31] MED LIST changes: +HYDR-3812 PO
--- NOTE | 2016-12-15 19:37 | ED Chest Pain ---
General Chief Complaint: Chest Pain Stated Complaint: CHEST PAIN Source: patient Exam Limitations: no limitations History of Present Illness Time seen by provider: 19:36 Initial Comments To ER per EMS from [facility] with reports of central chest pain that began 1 hour ago while at rest. Pain is worsened somewhat by taking a deep breath. He also has general weakness and he did have some sweating and nausea and this first began. EMS gave 324 mg baby aspirin and 3 nitroglycerin in route without any relief in his pain. He remains tachycardic sinus in the 115 range and hypertensive in the 150/110 range. He states he has a history of 2 "mild heart attacks" somewhere in [place]. Severity/Quality: moderate Location: central Radiation: no radiation Activities at Onset: rest ASA po PROMOTIONS ASSISTANT SALES MARKETING: No NTG SL PROMOTIONS ASSISTANT SALES MARKETING: No Allergies and Home Medications Allergies Coded Allergies: codeine (Verified Allergy, Severe, SWOLLEN LIPS, 10/11/16) Home Medications Albuterol Sulfate 1 Puff Puff, 2 PUFF IH BID, (Reported) 1 PUFF = 90 MCG Hydrocodone/Acetaminophen 1 Each Tablet, 1 TAB PO Q6H PRN, #20 Ref 0 Prescribed by: CHRIS CONLEY on 10/13/16 1040 Review of Systems Constitutional: see HPI EENTM: No Symptoms Reported Respiratory: No Symptoms Reported Cardiovascular: See HPI, Chest Pain Gastrointestinal: No Symptoms Reported Genitourinary: No Symptoms Reported Musculoskeletal: no symptoms reported Psychiatric/Neurological: No Symptoms Reported Endocrine: No Symptoms Reported Hematologic/Lymphatic: No Symptoms Reported Past Vzzptua-Mxucwb-Eygkdo Hx Patient Social History Drug of Choice: HX OF METH, NONE FOR 6-8 MONTHS Type Used: Cigarettes 2nd Hand Smoke Exposure: No Recent Hopitalizations: No Seasonal Allergies Seasonal Allergies: Yes Surgeries History of Surgeries: Yes (head, r shoulder, l inguinal hernia repair) Respiratory History of Respiratory Disorde: Yes Respiratory Disorders: Emphysema Currently Using CPAP: No Currently Using BIPAP: No Cardiovascular History of Cardiac Disorders: No Neurological History of Neurological Disord: No Reproductive System Hx Reproductive Disorders: No Sexually Transmitted Disease: No HIV/AIDS: No Gastrointestinal History of Gastrointestinal Di: No Gastrointestinal Disorders: Gastroesophageal Reflux Musculoskeletal History of Musculoskeletal Dis: No Musculoskeletal Disorders: Arthritis Endocrine History of Endocrine Disorders: No HEENT Loss of Vision: Bilateral Hearing Impairment: Denies Cancer History of Cancer: No Psychosocial History of Psychiatric Problem: No Integumentary History of Skin or Integumenta: No Blood Transfusions History of Blood Disorders: No Adverse Reaction to a Blood Tr: No (N/A) Physical Exam Vital Signs Vital Sign - Last 12Hours 12/15/16 19:35 Temp 98.2 Pulse 109 Resp 15 B/P (MAP) 149/108 Pulse Ox 94 O2 Delivery Room Air Capillary Refill : General Appearance: No Apparent Distress, WD/WN HEENT: PERRL/EOMI, TMs Normal Neck: Full Range of Motion, Normal Inspection Respiratory: Normal Breath Sounds, No Accessory Muscle Use, No Respiratory Distress Cardiovascular: Normal Peripheral Pulses, Tachycardia Gastrointestinal: Normal Bowel Sounds, Non Tender, Soft Extremity: Normal Capillary Refill, Normal Inspection Neurologic/Psychiatric: Alert, Oriented x3 Skin: Normal Color, Warm/Dry Progress/Results/Core Measures Results/Orders Lab Results Laboratory Tests Test 12/15/16 00:00 12/15/16 19:35 12/15/16 21:35 Range/Units White Blood Count 8.8 4.3-11.0 10^3/uL Red Blood Count 4.91 4.35-5.85 10^6/uL Hemoglobin 15.3 13.3-17.7 G/DL Hematocrit 43 40-54 % Mean Corpuscular Volume 88 80-99 FL Mean Corpuscular Hemoglobin 31 25-34 PG Mean Corpuscular Hemoglobin Concent 36 32-36 G/DL Red Cell Distribution Width 12.5 10.0-14.5 % Platelet Count 307 130-400 10^3/uL Mean Platelet Volume 9.7 7.4-10.4 FL Neutrophils (%) (Auto) 60 42-75 % Lymphocytes (%) (Auto) 30 12-44 % Monocytes (%) (Auto) 7 0-12 % Eosinophils (%) (Auto) 2 0-10 % Basophils (%) (Auto) 1 0-10 % Neutrophils # (Auto) 5.2 1.8-7.8 X 10^3 Lymphocytes # (Auto) 2.7 1.0-4.0 X 10^3 Monocytes # (Auto) 0.6 0.0-1.0 X 10^3 Eosinophils # (Auto) 0.2 0.0-0.3 10^3/uL Basophils # (Auto) 0.0 0.0-0.1 10^3/uL Prothrombin Time 11.8 L 12.2-14.7 SEC INR Comment 0.9 0.8-1.4 Activated Partial Thromboplast Time 26 24-35 SEC D-Dimer 0.28 0.00-0.49 UG/ML Sodium Level 140 135-145 MMOL/L Potassium Level 3.8 3.6-5.0 MMOL/L Chloride Level 104 98-107 MMOL/L Carbon Dioxide Level 27 21-32 MMOL/L Anion Gap 9 5-14 MMOL/L Blood Urea Nitrogen 17 7-18 MG/DL Creatinine 1.16 0.60-1.30 MG/DL Estimat Glomerular Filtration Rate > 60 BUN/Creatinine Ratio 15 Glucose Level 162 H 70-105 MG/DL Calcium Level 9.6 8.5-10.1 MG/DL Magnesium Level 2.0 1.8-2.4 MG/DL Total Bilirubin 0.3 0.1-1.0 MG/DL Aspartate Amino Transf (AST/SGOT) 18 5-34 U/L Alanine Aminotransferase (ALT/SGPT) 36 0-55 U/L Alkaline Phosphatase 72 40-136 U/L Myoglobin 30.3 10.0-92.0 NG/ML Troponin I < 0.30 <0.30 NG/ML Total Protein 7.6 6.4-8.2 GM/DL Albumin 4.1 3.2-4.5 GM/DL My Orders Orders - DANELLE GALLARDO SPORTS PHOTOGRAPHER Cbc With Automated Diff (12/15/16 19:32) Magnesium (12/15/16 19:32) Chest 1 View, Ap/Pa Only (12/15/16 19:32) Ekg Tracing (12/15/16 19:32) Cardiac Profile 1 (12/15/16 19:32) Comprehensive Metabolic Panel (12/15/16 19:32) Myoglobin Serum (12/15/16 19:32) Protime With Inr (12/15/16 19:32) Partial Thromboplastin Time (12/15/16 19:32) O2 (12/15/16 19:32) Monitor-Rhythm Ecg Trace Only (12/15/16 19:32) Lipid Panel (12/16/16 06:00) Saline Lock/Iv-Start (12/15/16 19:32) Metoprolol Tartrate Injection (Lopressor (12/15/16 19:45) Ua Culture If Indicated (12/15/16 19:47) Drug Screen Stat (Urine) (12/15/16 19:47) Fibrin Degradation Products (12/15/16 19:53) Ns Iv 1000 Ml (Sodium Chloride 0.9%) (12/15/16 20:15) Ketorolac Injection (Toradol Injection) (12/15/16 20:15) Meclizine Tablet (Antivert Tablet) (12/15/16 20:15) Troponin I (12/15/16 21:35) Ekg Tracing (12/15/16 21:35) Medications Given in ED Current Medications Medications Dose Ordered Sig/Josh Route Start Time Stop Time Status Last Admin Dose Admin Ketorolac Tromethamine 30 mg ONCE ONCE IVP 12/15/16 20:15 12/15/16 20:16 DC 12/15/16 20:18 30 MG Meclizine HCl 25 mg ONCE ONCE PO 12/15/16 20:15 12/15/16 20:16 DC 12/15/16 20:18 25 MG Metoprolol Tartrate 5 mg ONCE ONCE IV 12/15/16 19:45 12/15/16 19:47 DC 12/15/16 19:43 5 MG Vital Signs/I&O Vital Sign - Last 12Hours 12/15/16 12/15/16 19:35 19:35 Temp 98.2 Pulse 109 Resp 15 B/P (MAP) 149/108 Pulse Ox 94 O2 Delivery Room Air Departure Impression Impression: Primary Impression: Chest pain Disposition: HOME, SELF-CARE Condition: Stable Departure-Patient Inst. Decision time for Depature: 21:52 Referrals: LUIS F PAGE DO (PCP) Primary Care Physician TANNER GRAY (Family) Primary Care Physician Patient Instructions: Chest Pain (DC) Add. Discharge Instructions: 1. Follow-up with her regular doctor as scheduled 2. Return to ER for any concerns All discharge instructions reviewed with patient and/or family. Voiced understanding. DANELLE GALLARDO APRN Dec 15, 2016 19:37
[2016-12-15] MEDS ORDERED: meTOprolol 5 MG/5 ML (LOPRESSOR) VIAL IV ONE (19:45)
[2016-12-15 19:53] LABS: BASOPHILS % (AUTO) 1 % (0-10); EOSINOPHILS # (AUTO) 0.2 10^3/uL (0.0-0.3); EOSINOPHILS % (AUTO) 2 % (0-10); LYMPHOCYTES # (AUTO) 2.7 X 10^3 (1.0-4.0); LYMPHOCYTES % (AUTO) 30 % (12-44); MEAN CORPUSCULAR HEMOGLOBIN 31 PG (25-34); MEAN CORPUSCULAR HGB CONC 36 G/DL (32-36); MEAN CORPUSCULAR VOLUME 88 FL (80-99); MEAN PLATELET VOLUME 9.7 FL (7.4-10.4); MONOCYTES # (AUTO) 0.6 X 10^3 (0.0-1.0); MONOCYTES % (AUTO) 7 % (0-12); NEUTROPHILS # (AUTO) 5.2 X 10^3 (1.8-7.8); NEUTROPHILS % (AUTO) 60 % (42-75); PLATELET COUNT 307 10^3/uL (130-400); RED BLOOD COUNT 4.91 10^6/uL (4.35-5.85); RED CELL DISTRIBUTION WIDTH 12.5 % (10.0-14.5); WHITE BLOOD COUNT 8.8 10^3/uL (4.3-11.0)
--- NOTE | 2016-12-15 19:58 | Diagnostic Imaging Report ---
INDICATION: Chest pain. COMPARISON: 11/03/2015. FINDINGS: Single view of the chest demonstrates a stable nodule in the right base. The left lung is clear. The heart is normal. There is no pneumothorax. Osseous structures are normal. IMPRESSION: No acute cardiopulmonary findings. Dictated by: Dictated on workstation # [id number]
[2016-12-15 20:05] LABS: INR 0.9 (0.8-1.4); PROTHROMBIN TIME PATIENT 11.8 SEC (12.2-14.7)
[2016-12-15 20:12] LABS: ALANINE AMINOTRANSFERASE 36 U/L (0-55); ALBUMIN 4.1 GM/DL (3.2-4.5); ANION GAP 9 MMOL/L (5-14); ASPARTATE AMINO TRANSFERASE 18 U/L (5-34); BILIRUBIN,TOTAL 0.3 MG/DL (0.1-1.0); BLOOD UREA NITROGEN 17 MG/DL (7-18); BUN/CREATININE RATIO 15; CALCIUM 9.6 MG/DL (8.5-10.1); CARBON DIOXIDE 27 MMOL/L (21-32); CHLORIDE 104 MMOL/L (98-107); CREATININE SERUM 1.16 MG/DL (0.60-1.30); GFR ESTIMATED > 60; GLUCOSE 162 MG/DL (70-105); POTASSIUM 3.8 MMOL/L (3.6-5.0); SODIUM 140 MMOL/L (135-145); TOTAL PROTEIN 7.6 GM/DL (6.4-8.2)
[2016-12-15] MEDS ORDERED: KETOROLAC 30 MG/ML VIAL IVP ONE (20:15)
[2016-12-15] MEDS ORDERED: NS IV 1000 ML 1,000 ML IV SCH (20:15)
[2016-12-15] MEDS ORDERED: MECLIZINE 25 MG (ANTIVERT) TAB PO ONE (20:15)
[2016-12-15 20:19] LABS: MYOGLOBIN SERUM 30.3 NG/ML (10.0-92.0)
[2016-12-15] MEDS ORDERED: cloNIDine 0.1 MG (CATAPRES) TAB ONE (22:07)
[2016-12-15] MEDS ORDERED: cloNIDine 0.1 MG (CATAPRES) TAB PO ONE (22:15)
[2016-12-15 22:20] VITALS: BP 178/95
== END 2016-12-15 22:19 | disposition home or self-care (01) ==
LOC: EDUNIT# 19:31 → ER 19:32
DX: J43.9 Emphysema, unspecified; M19.90 Unspecified osteoarthritis, unspecified site; K21.9 Gastro-esophageal reflux disease without esophagitis; Z87.19 Personal history of other diseases of the digestive system; R07.89 Other chest pain
CPT/HCPCS: 36415; 71010; 80053; 83735; 83874; 84484; 85025; 85379; 85610; 85730; 93005; 93041; 96361; 96374; 96375

== ENCOUNTER 2017-12-02 08:32 | Emergency (ER) | payer SELFPAY ==
[~2017-12-02] VITALS: Ht 180.3 cm; Wt 70.1 kg
[~2017-12-02 08:32] MED LIST changes: +ACHD5005 PO; -HYDR-3812 PO
--- OUTSIDE RECORDS SUMMARY | 2017-12-02 08:53 | XMS REPORT ---
Author Author TANNER GRAY Organization 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 [id number] [place] [address]80 Mar, Rib pain on right side R07.81 [facility] [id number] [place] [address]1022- 9117 Jan, Mood disorder F39 [facility] [id number] [place] [address] 79953[address]902 Dec, [facility] [id number] [place] [address] 09139- 0721 Dec, Spider bite T63.301A [facility] [id number] [place] [address] 66912- 2730 Dec, Mood disorder F[address] [place] [id number] Nov, Mood disorder F39 ; Chondromalacia 733.92 and Chronic seasonal allergic rhinitis due to other allergen J30.2 [facility] [id number] [place] [address] 23539- 5828 Nov, [facility] [id number] [place] [address] 14875- 5642 Nov, Chronic obstructive pulmonary disease with (acute) exacerbation J44.1 [facility] [id number] [place] [address] 72229- 8958 Nov, Mood disorder F[address] [place] [id number] Nov, Personal history of other diseases of the digestive system Z87.19 ; Other specified postprocedural states Z98.890 and Mood disorder F39 [id number] [place] [address] 20691- 8052 Oct, Chronic mood disorder F34.9 [address] [place] [id number] [place] [address] 93528- 7080 Oct, Pain in unspecified knee M25.569 [address] [place] [id number] Oct, Slow transit constipation K59.01 ; Other specified postprocedural states Z98.890 and Abdominal pain, right lower quadrant R10.31 [place] [id number] [place] [address] 24649- 8519 Oct, [place] [id number] [place] [address] 52993- 6314 Sep, Non-recurrent unilateral inguinal hernia without obstruction or gangrene K40.90 [place] [id number] [place] [address] 06737- 5750 Jun, [place] [id number] [place] [address] 69361- 4943 Jun, [place] [id number] [place] [address] [place] [address] May, [facility] [address] [id number] [place] [address] May, [facility] [address] [facility] [id number] [place] [address] 1687 Mar, [facility] [address] [facility] [id number] [place] [address] Mar, [facility] [address] [id number] [place] [address] Feb, [facility] [address] [id number] [place] Feb, [facility] [address] [facility] [id number] [place] [address] Feb, [facility] [address] [facility] [id number] [place] [address]662 Feb, [facility] [address] [facility] [id number] [place] [address] July, [facility] [address] [facility] [id number] [place] [address] July, [facility] [address] [facility] [id number] [place] [address] July, [facility] [address] [facility] [id number] [place] [address] July, [facility] [address] [facility] [id number], [place] [address] Jun, [facility] [address] [id number], [place] [address] Jun, [facility] [address] [facility] [id number] [place] [address] Jun, [facility] [address] [facility] [id number], [place] [address] Jun, IMMUNIZATIONS No Known Immunizations SOCIAL HISTORY Never Assessed REASON FOR VISIT senior living rx PLAN OF CARE VITAL SIGNS MEDICATIONS Medication Instructions Dosage Frequency Start Date End Date Duration Status Claritin 10 MG Orally Once a day 1 tablet 24h Nov, Dec, 30 day(s) Active RESULTS No Results PROCEDURES No Known procedures INSTRUCTIONS MEDICATIONS ADMINISTERED No Known Medications MEDICAL (GENERAL) HISTORY Type Description Date Surgical History right inguinal hernia repair Hospitalization History right inguinal hernia repair
--- OUTSIDE RECORDS SUMMARY | 2017-12-02 08:53 | XMS REPORT ---
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 Active 52366061 Problem Pain in joint, lower leg 719.46 Active 269681092 Problem Chronic obstructive pulmonary disease with (acute) exacerbation J44.1 Active 777233684 Problem Mood disorder F39 Active 17964287 Problem Other and unspecified hyperlipidemia 272.4 Active 65441121 Problem Obstructive chronic bronchitis, with (acute) exacerbation 491.21 Active 709782104 Problem Pain in unspecified knee M25.569 Active 201292073 Problem Slow transit constipation K59.01 Active 35653439 ALLERGIES Substance Reaction Event Type Date Status Codeine Unknown Drug Allergy Dec, Active ENCOUNTERS Encounter Location Date Diagnosis [id number] [place] [address] Mar, Rib pain on right side R07.81 [facility] [id number] [address] Jan, Mood disorder F39 [facility] [address], [place] [address] Dec, [facility] [address] [place] [address] Dec, Spider bite T63.301A [facility] [address] [place] [address] Dec, Mood disorder F[address] [place] [id number] Nov, Mood disorder F39 ; Chondromalacia 733.92 and Chronic seasonal allergic rhinitis due to other allergen J30.2 [facility] [address], [place] [address] Nov, [facility] [id number] [place] [address] 8[address]79- [address] Nov, Chronic obstructive pulmonary disease with (acute) exacerbation J44.1 [facility] [id number] [place] [address]- [address]2 Nov, Mood disorder [address] [place] [id number] Nov, Personal history of other diseases of the digestive system Z87.19 ; Other specified postprocedural states Z98.890 and Mood disorder F39 [facility] [id number] [place] [address] 16266- 4318 Oct, Chronic mood disorder F34.9 [facility] [id number] [place] [address] 15806- 6875 Oct, Pain in unspecified knee M25.5[address] [place] [id number] Oct, Slow transit constipation K59.01 ; Other specified postprocedural states Z98.890 and Abdominal pain, right lower quadrant R10.31 [facility] [id number] [place] [address] 85283- 7281 Oct, [facility] [id number] [place] [address] 27631- 3927 Sep, Non-recurrent unilateral inguinal hernia without obstruction or gangrene K40.90 [facility] [id number] [place] [address] 56682- 6970 Jun, [facility] [id number] [place] [address]23- 5444 Jun, [facility] [address] [id number] [place] [address] May, [facility] [place] [facility] [address] [id number] [place] [address]- [address] May, [facility] [place] [facility] [address] [id number] [place] [address]- 8610 Mar, [facility] [place] [facility] [address] [id number] [place] [address]- 98[address] Mar, [facility] [place] [facility] [address] [id number] [place] [address]- 8765 Feb, [facility] [place] [facility] [address] [id number] [place] [address]- 4420 Feb, [facility] [place] [facility] [address] [id number] [place] [address]- 57[address] Feb, [facility] [place] [facility] [address] [id number] [place] [address]- 7939 Feb, [facility] [place] [facility] [address] [id number] [place] [address]- 1732 July, [facility] [place] [facility] [address] [id number] [place] [address]- 9068 July, [facility] [place] [facility] [address] [id number] [place] [address]- 9261 July, [facility] [place] [facility] [address] [id number] [place] [address]- 1548 July, [facility] [place] [facility] [address] [id number] [place] [address]- 6127 Jun, [facility] [place] [facility] [address] [id number] [place] [address]- 5514 Jun, [facility] [place] [facility] [address] [id number] [place] [address]- 0592 Jun, [facility] [place] [facility] [address] [id number], [place] [address] Jun, IMMUNIZATIONS No Known Immunizations SOCIAL HISTORY Never Assessed REASON FOR VISIT longterm rx PLAN OF CARE VITAL SIGNS MEDICATIONS Medication Instructions Dosage Frequency Start Date End Date Duration Status Elimite 5 % Externally Once a day 1 application to affected area 24h DecDec, 7 day(s) Active RESULTS No Results PROCEDURES No Known procedures INSTRUCTIONS MEDICATIONS ADMINISTERED No Known Medications MEDICAL (GENERAL) HISTORY Type Description Date Surgical History right inguinal hernia repair Hospitalization History right inguinal hernia repair
--- OUTSIDE RECORDS SUMMARY | 2017-12-02 08:53 | XMS REPORT ---
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 Active 90410878 Problem Pain in joint, lower leg 719.46 Active 934107276 Problem Chronic obstructive pulmonary disease with (acute) exacerbation J44.1 Active 563332979 Problem Mood disorder F39 Active 08652044 Problem Other and unspecified hyperlipidemia 272.4 Active 68964419 Problem Obstructive chronic bronchitis, with (acute) exacerbation 491.21 Active 041490340 Problem Pain in unspecified knee M25.569 Active 515394735 Problem Slow transit constipation K59.01 Active 71611214 ALLERGIES Substance Reaction Event Type Date Status Codeine Unknown Drug Allergy Dec, Active ENCOUNTERS Encounter Location Date Diagnosis [address] [address] [address], [place] [address] Mar, Rib pain on right side R07.81 [facility] [id number] [address] Jan, Mood disorder F39 [facility] [address], [place] [address] Dec, [facility] [address], [place] [address] Dec, Spider bite T63.301A [facility] [address] [address] Dec, Mood disorder F39 [address] [place] [id number] Nov, Mood disorder F39 ; Chondromalacia 733.92 and Chronic seasonal allergic rhinitis due to other allergen J30.2 [facility] [address], [place] [address] Nov, [facility] [id number] [place] [address]70- 9400 Nov, Chronic obstructive pulmonary disease with (acute) exacerbation J44.1 [facility] [id number] [place] [address]66- 7957 Nov, Mood disorder F39 [address] [place] [id number] Nov, Personal history of other diseases of the digestive system Z87.19 ; Other specified postprocedural states Z98.890 and Mood disorder F39 [facility] [id number] [place] [address]92- 5546 Oct, Chronic mood disorder F34.9 [facility] [id number] [place] [address] 85627- 7124 Oct, Pain in unspecified knee M25.569 [address] [place] [id number] Oct, Slow transit constipation K59.01 ; Other specified postprocedural states Z98.890 and Abdominal pain, right lower quadrant R10.31 [facility] [id number] [place] [address]11- 5754 Oct, [facility] [id number] [place] [address] 69180- 2753 Sep, Non-recurrent unilateral inguinal hernia without obstruction or gangrene K40.90 [facility] [id number] [place] [address] 32883- 9528 Jun, [facility] [id number] [place] [address] 45530- 9627 Jun, [facility] [address] [id number] [place] [address] 4851 May, [facility] [place] [facility] [address] [id number] [place] [address] 8406 May, [facility] [place] [facility] [address] [id number] [place] [address]- 4631 Mar, [facility] [place] [facility] [address] [id number] [place] [address]- 4985 Mar, [facility] [place] [facility] [address] [id number] [place] [address]- 0478 Feb, [facility] [place] [facility] [address] [id number] [place] [address]- 7745 Feb, [facility] [place] [facility] [address] [id number] [place] [address]- 7455 Feb, [facility] [place] [facility] [address] [id number] [place] [address]- 2893 Feb, [facility] [place] [facility] [address] [id number] [place] [address]- 9901 July, [facility] [place] [facility] [address] [id number] [place] [address]- 6172 July, [facility] [place] [facility] [address] [id number] [place] [address]- 5914 July, [facility] [place] [facility] [address] [id number] [place] [address]- 2162 July, [facility] [place] [facility] [address] [id number] [place] [address]- 8155 Jun, [facility] [place] [facility] [address] [id number] [place] [address]- 8431 Jun, [facility] [place] [facility] [address] [id number] [place] [address]- 9306 Jun, [facility] [place] [facility] [address] [id number] [address] 7[address] Jun, IMMUNIZATIONS No Known Immunizations SOCIAL HISTORY Never Assessed REASON FOR VISIT fci rx PLAN OF CARE VITAL SIGNS MEDICATIONS Medication Instructions Dosage Frequency Start Date End Date Duration Status Bactrim DS 800-160 MG Orally Twice a day 1 tablet 12h Dec,Dec 10 day(s) Active RESULTS No Results PROCEDURES No Known procedures INSTRUCTIONS MEDICATIONS ADMINISTERED No Known Medications MEDICAL (GENERAL) HISTORY Type Description Date Surgical History right inguinal hernia repair Hospitalization History right inguinal hernia repair
--- OUTSIDE RECORDS SUMMARY | 2017-12-02 08:53 | XMS REPORT ---
Author Author TANNER GRAY Organization [facility] Address [address] [place] [address] Care Team Providers Care Cotton Washer Name Role Phone TANNER GRAY Unavailable PROBLEMS Type Condition ICD9-CM Code PQI08-PR Code Onset Dates Condition Status SNOMED Code Problem Primary localized osteoarthrosis, lower leg 715.16 Active 886732654 Problem Chronic airway obstruction, not elsewhere classified 496 Active 13671800 Problem Other specified disorders of rotator cuff syndrome of shoulder and allied disorders 726.19 Active 3795848 Problem Chondromalacia 733.92 Active 08557157 Problem Pain in joint, lower leg 719.46 Active 902785438 Problem Chronic obstructive pulmonary disease with (acute) exacerbation J44.1 Active 141105477 Problem Mood disorder F39 Active 81428605 Problem Other and unspecified hyperlipidemia 272.4 Active 40008325 Problem Obstructive chronic bronchitis, with (acute) exacerbation 491.21 Active 206326575 Problem Pain in unspecified knee M25.569 Active 916588131 Problem Slow transit constipation K59.01 Active 64144754 ALLERGIES Substance Reaction Event Type Date Status Codeine Unknown Drug Allergy Nov, Active ENCOUNTERS Encounter Location Date Diagnosis [place] [address] [address] Mar, Rib pain on right side R07.81 [facility] [id number] [address] Jan, Mood disorder F39 [facility] [address] [address] 8[address] Dec, [facility] [address] [address] Dec, Spider bite T63.301A [facility] [address] [address] Dec, Mood disorder F39 [address] [place] [id number] Nov, Mood disorder F39 ; Chondromalacia 733.92 and Chronic seasonal allergic rhinitis due to other allergen J30.2 [facility] [address] [address] 9[address] Nov, [facility] [id number] [place] [address] 16812- 6198 Nov, Chronic obstructive pulmonary disease with (acute) exacerbation J44.1 [facility] [id number] [place] [address] 24552- 3566 Nov, Mood disorder F39 [address] [place] [id number] Nov, Personal history of other diseases of the digestive system Z87.19 ; Other specified postprocedural states Z98.890 and Mood disorder F39 [facility] [id number] [place] [address] 47138- 9213 Oct, Chronic mood disorder F34.9 [facility] [id number] [place] [address] 28050- 0560 Oct, Pain in unspecified knee M25.569 [address] [place] [id number] Oct, Slow transit constipation K59.01 ; Other specified postprocedural states Z98.890 and Abdominal pain, right lower quadrant R10.31 [facility] [id number] [place] [address] 03461- 4562 Oct, [facility] [id number] [place] [address] 77848- 5208 Sep, Non-recurrent unilateral inguinal hernia without obstruction or gangrene K40.90 [facility] [id number] [place] [address] 01348- 9435 Jun, [facility] [id number] [place] [address] 27787- 9784 Jun, [facility] [address] [id number] [place] [address]- 5159 May, [facility] [place] [facility] [address] [id number] [place] [address]- 6939 May, [facility] [place] [facility] [address] [id number] [place] [address]- 4192 Mar, [facility] [place] [facility] [address] [id number] [place] [address]- 8921 Mar, [facility] [place] [facility] [address] [id number] [place] [address]- 5031 Feb, [facility] [place] [facility] [address] [id number] [place] [address]- 3917 Feb, [facility] [place] [facility] [address] [id number] [place] [address]- 3878 Feb, [facility] [place] [facility] [address] [id number] [place] [address]- 2828 Feb, [facility] [place] [facility] [address] [id number] [place] [address]- 6069 July, [facility] [place] [facility] [address] [id number] [place] [address]- 7965 July, [facility] [place] [facility] [address] [id number] [place] [address]- 5160 July, [facility] [place] [facility] [address] [id number] [place] [address]- 3199 July, [facility] [place] [facility] [address] [id number] [place] [address]- 9686 Jun, [facility] [place] [facility] [address] [id number] [place] [address]- 7361 Jun, [facility] [place] [facility] [address] [id number] [place] [address]- 3986 Jun, [facility] [place] [facility] [address] [id number] [address]- 0296 Jun, IMMUNIZATIONS No Known Immunizations SOCIAL HISTORY Never Assessed REASON FOR VISIT [facility] rx PLAN OF CARE VITAL SIGNS MEDICATIONS Medication Instructions Dosage Frequency Start Date End Date Duration Status Seroquel 100 MG Orally Once a day 1 tablet 24h Nov, 30 day(s) Active RESULTS No Results PROCEDURES No Known procedures INSTRUCTIONS MEDICATIONS ADMINISTERED No Known Medications MEDICAL (GENERAL) HISTORY Type Description Date Surgical History right inguinal hernia repair Hospitalization History right inguinal hernia repair
--- OUTSIDE RECORDS SUMMARY | 2017-12-02 08:53 | XMS REPORT ---
Author Author TANNER RGAY Organization [facility] Address [address] [place] [address] Care Team Providers Care Plastic Welder Name Role Phone TANNER GRAY Unavailable PROBLEMS Type Condition ICD9-CM Code QYN46-NR Code Onset Dates Condition Status SNOMED Code Problem Primary localized osteoarthrosis, lower leg 715.16 Active 250618437 Problem Chronic airway obstruction, not elsewhere classified 496 Active 44423999 Problem Other specified disorders of rotator cuff syndrome of shoulder and allied disorders 726.19 Active 0843124 Problem Chondromalacia 733.92 Active 13952127 Problem Pain in joint, lower leg 719.46 Active 039601129 Problem Chronic obstructive pulmonary disease with (acute) exacerbation J44.1 Active 563962727 Problem Mood disorder F39 Active 44489606 Problem Other and unspecified hyperlipidemia 272.4 Active 66343747 Problem Obstructive chronic bronchitis, with (acute) exacerbation 491.21 Active 111083537 Problem Pain in unspecified knee M25.569 Active 789724534 Problem Slow transit constipation K59.01 Active 13295548 ALLERGIES No Information ENCOUNTERS Encounter Location Date Diagnosis [facility] [id number] [place] [address] 28377- 7192 Mar, Rib pain on right side R07.81 [facility] [id number] [place] [address] 04837- 3855 Jan, Mood disorder F39 [facility] [id number] [place] [address] 37545- 3547 Dec, [facility] [id number] [place] [address] 93289- 5989 Dec, Spider bite T63.301A [facility] [id number] [place] [address] 69742- 2181 Dec, Mood disorder F39 [address] [place] [id number] Nov, Mood disorder F39 ; Chondromalacia 733.92 and Chronic seasonal allergic rhinitis due to other allergen J30.2 [facility] [id number] [place] [address] 57805- 1914 Nov, [facility] [id number] [place] [address] 96268- 5524 Nov, Chronic obstructive pulmonary disease with (acute) exacerbation J44.1 [facility] [id number] [place] [address] 77933- 5649 Nov, Mood disorder F39 [address] [place] [id number] Nov, Personal history of other diseases of the digestive system Z87.19 ; Other specified postprocedural states Z98.890 and Mood disorder F39 [id number] [place] [address] 59671- 0025 Oct, Chronic mood disorder F34.9 [place] [id number] [place] [address] 91032- 0139 Oct, Pain in unspecified knee M25.569 [address] [place] [address] Oct, Slow transit constipation K59.01 ; Other specified postprocedural states Z98.890 and Abdominal pain, right lower quadrant R10.31 [place] [id number] [place] [address] 95866- 2677 Oct, [place] [address] [place] [address] 79166- 7933 Sep, Non-recurrent unilateral inguinal hernia without obstruction or gangrene K40.90 [place] [id number] [place] [address] 42754- 5128 Jun, [place] [id number] [place] [address] 27226- 0802 Jun, [place] [id number] [place] [address] [place] [address]- 2133 May, [facility] [address] [id number] [place] [address]- 9732 May, [facility] [address] [facility] [id number] [place] [address]- 9888 Mar, [facility] [address] [facility] [id number] [place] [address]- 7598 Mar, [facility] [address] [id number] [place] [address]- 3962 Feb, [facility] [address] [id number] [place] [address]79 Feb, [facility] [address] [facility] [id number] [place] [address]- 4285 Feb, [facility] [address] [facility] [id number] [place] [address]- 4957 Feb, [facility] [address] [facility] [id number] [place] [address]- 6346 July, [facility] [address] [facility] [id number] [place] [address]- 5264 July, [facility] [address] [facility] [id number] [place] [address]- 3254 July, [facility] [address] [facility] [id number] [place] [address]- 9844 July, [facility] [address] [facility] [id number], [place] [address]- 9344 Jun, [facility] [address] [id number], [place] [address]- 4594 Jun, [facility] [address] [facility] [id number] [place] [address]- 9422 Jun, [facility] [address] [facility] [id number], [place] [address]- 8742 Jun, IMMUNIZATIONS No Known Immunizations SOCIAL HISTORY Never Assessed REASON FOR VISIT snf pt PLAN OF CARE VITAL SIGNS MEDICATIONS No Known Medications RESULTS No Results PROCEDURES No Known procedures INSTRUCTIONS MEDICATIONS ADMINISTERED No Known Medications MEDICAL (GENERAL) HISTORY Type Description Date Surgical History right inguinal hernia repair Hospitalization History right inguinal hernia repair
--- OUTSIDE RECORDS SUMMARY | 2017-12-02 08:53 | XMS REPORT ---
Author Author TANNER GRAY Organization [facility] Address [address] [place] [address] Care Team Providers Care Cement Mason Maintenance Name Role Phone TANNER GRAY Unavailable PROBLEMS Type Condition ICD9-CM Code HQM34-XD Code Onset Dates Condition Status SNOMED Code Problem Primary localized osteoarthrosis, lower leg 715.16 Active 548075131 Problem Chronic airway obstruction, not elsewhere classified 496 Active 49749477 Problem Other specified disorders of rotator cuff syndrome of shoulder and allied disorders 726.19 Active 0587160 Problem Chondromalacia 733.92 Active 77059273 Problem Pain in joint, lower leg 719.46 Active 452047053 Problem Chronic obstructive pulmonary disease with (acute) exacerbation J44.1 Active 929980034 Problem Mood disorder F39 Active 81317252 Problem Other and unspecified hyperlipidemia 272.4 Active 21300988 Problem Obstructive chronic bronchitis, with (acute) exacerbation 491.21 Active 784433987 Problem Pain in unspecified knee M25.569 Active 815904136 Problem Slow transit constipation K59.01 Active 07158176 ALLERGIES No Information ENCOUNTERS Encounter Location Date Diagnosis [facility] [id number] [place] [address] 22262- 8027 Mar, Rib pain on right side R07.81 [facility] [id number] [place] [address] 17424- 0717 Jan, Mood disorder F39 [facility] [id number] [place] [address] 06915- 2415 Dec, [facility] [address] [place] [address] 40494- 7141 Dec, Spider bite T63.301A [facility] [id number] [place] [address] 48764- 8527 Dec, Mood disorder F39 [address] [place] [id number] Nov, Mood disorder F39 ; Chondromalacia 733.92 and Chronic seasonal allergic rhinitis due to other allergen J30.2 [facility] [id number] [place] [address] 23091- 5915 Nov, [facility] [id number] [place] [address] 72167- 5613 Nov, Chronic obstructive pulmonary disease with (acute) exacerbation J44.1 [facility] [id number] [place] [address] 96063- 6221 Nov, Mood disorder F39 [address] [place] [id number] Nov, Personal history of other diseases of the digestive system Z87.19 ; Other specified postprocedural states Z98.890 and Mood disorder F39 [id number] [place] [address] 24015- 7845 Oct, Chronic mood disorder F34.9 [place] [address] [place] [address] 23885- 7653 Oct, Pain in unspecified knee M25.569 [address] [place] [id number] Oct, Slow transit constipation K59.01 ; Other specified postprocedural states Z98.890 and Abdominal pain, right lower quadrant R10.31 [place] [id number] [place] [address] 12951- 7662 Oct, [place] [address] [place] [address] 23986- 3839 Sep, Non-recurrent unilateral inguinal hernia without obstruction or gangrene K40.90 [place] [id number] [place] [address] 61793- 2461 Jun, [place] [id number] [place] [address] 95563- 6421 Jun, [place] [id number] [place] [address] [place] [address]- 9763 May, [facility] [address] [id number] [place] [address]- 6774 May, [facility] [address] [facility] [id number] [place] [address]- 2473 Mar, [facility] [address] [facility] [id number] [place] [address]- 4160 Mar, [facility] [address] [id number] [place] [address]- 8607 Feb, [facility] [address] [id number] [place] [address]81 Feb, [facility] [address] [facility] [id number] [place] [address]- 5579 Feb, [facility] [address] [facility] [id number] [place] [address]- 1096 Feb, [facility] [address] [facility] [id number] [place] [address]- 7003 July, [facility] [address] [facility] [id number] [place] [address]- 6258 July, [facility] [address] [facility] [id number] [place] [address]- 7030 July, [facility] [address] [facility] [id number] [place] [address]- 1628 July, [facility] [address] [facility] [id number], [place] [address]- 6806 Jun, [facility] [address] [id number], [place] [address]- 1439 Jun, [facility] [address] [facility] [id number] [place] [address]- 8302 Jun, [facility] [address] [facility] [id number], [place] [address]- 8569 Jun, IMMUNIZATIONS No Known Immunizations SOCIAL HISTORY Never Assessed REASON FOR VISIT fci rx PLAN OF CARE VITAL SIGNS MEDICATIONS Medication Instructions Dosage Frequency Start Date End Date Duration Status Amitriptyline HCl 25 MG Orally at bedtime 1 tablet Oct, 30 day(s) Active RESULTS No Results PROCEDURES No Known procedures INSTRUCTIONS MEDICATIONS ADMINISTERED No Known Medications MEDICAL (GENERAL) HISTORY Type Description Date Surgical History right inguinal hernia repair Hospitalization History right inguinal hernia repair
--- OUTSIDE RECORDS SUMMARY | 2017-12-02 08:54 | XMS REPORT ---
Author Author TANNER GRAY Organization [facility] Address [address] [place] [address] Care Team Providers Care Machine Molder Name Role Phone TANNER GRAY Unavailable PROBLEMS Type Condition ICD9-CM Code KEE09-CF Code Onset Dates Condition Status SNOMED Code Problem Primary localized osteoarthrosis, lower leg 715.16 Active 440635306 Problem Chronic airway obstruction, not elsewhere classified 496 Active 28207865 Problem Other specified disorders of rotator cuff syndrome of shoulder and allied disorders 726.19 Active 5506437 Problem Chondromalacia 733.92 Active 75689986 Problem Pain in joint, lower leg 719.46 Active 939162858 Problem Chronic obstructive pulmonary disease with (acute) exacerbation J44.1 Active 244841733 Problem Mood disorder F39 Active 20555678 Problem Other and unspecified hyperlipidemia 272.4 Active 40832493 Problem Obstructive chronic bronchitis, with (acute) exacerbation 491.21 Active 722123306 Problem Pain in unspecified knee M25.569 Active 006206935 Problem Slow transit constipation K59.01 Active 65933693 ALLERGIES Substance Reaction Event Type Date Status Codeine Unknown Drug Allergy Sep, Active ENCOUNTERS Encounter Location Date Diagnosis [place] [address], [place] [address] Mar, Rib pain on right side R07.81 [facility] [id number], [place] [address] Jan, Mood disorder F39 [facility] [address], [place] [address] Dec, [facility] [address], [place] [address] Dec, Spider bite T63.301A [facility] [address], [place] [address] Dec, Mood disorder F39 [address] [place] [id number] Nov, Mood disorder F39 ; Chondromalacia 733.92 and Chronic seasonal allergic rhinitis due to other allergen J30.2 [facility] [address], [place] [address] Nov, [facility] [id number] [place] [address] Nov, Chronic obstructive pulmonary disease with (acute) exacerbation J44.1 [facility] [id number] [place] [address] Nov, Mood disorder F39 [address] [place] [id number] Nov, Personal history of other diseases of the digestive system Z87.19 ; Other specified postprocedural states Z98.890 and Mood disorder F39 [facility] [id number] [place] [address] Oct, Chronic mood disorder F34.9 [facility] [id number] [place] [address] Oct, Pain in unspecified knee M25.569 [address] [place] [id number] Oct, Slow transit constipation K59.01 ; Other specified postprocedural states Z98.890 and Abdominal pain, right lower quadrant R10.31 [facility] [id number] [place] [address] Oct, [facility] [id number] [place] [address] Sep, Non-recurrent unilateral inguinal hernia without obstruction or gangrene K40.90 [facility] [id number] [place] [address] Jun, [facility] [id number] [place] [address] Jun, [facility] [address] [id number] [place] [address] May, [facility] [place] [facility] [address] [id number] [place] [address] May, [facility] [place] [facility] [address] [id number] [place] [address] Mar, [facility] [place] [facility] [address] [id number] [place] [address] Mar, [facility] [place] [facility] [address] [id number] [place] [address] Feb, [facility] [place] [facility] [address] [id number] [place] [address] Feb, [facility] [place] [facility] [address] [id number] [place] [address] Feb, [facility] [place] [facility] [address] [id number] [place] [address] Feb, [facility] [place] [facility] [address] [id number] [place] [address] July, [facility] [place] [facility] [address] [id number] [place] [address] July, [facility] [place] [facility] [address] [id number] [place] [address] July, [facility] [place] [facility] [address] [id number] [place] [address] July, [facility] [place] [facility] [address] [id number] [place] [address] Jun, [facility] [place] [facility] [address] [id number] [place] [address] 115[address] Jun, [facility] [place] [facility] [address] [id number] [place] [address] Jun, [facility] [place] [facility] [address] [id number], [place] [address] Jun, IMMUNIZATIONS No Known Immunizations SOCIAL HISTORY Never Assessed REASON FOR VISIT Fell and c/o pain in testicles -CLogiudiciRN PLAN OF CARE VITAL SIGNS Temperature 97.6 degrees Fahrenheit 2016-09-30 Heart Rate 78 bpm 2016-09-30 Respiratory Rate 18 2016-09-30 Blood pressure systolic 132 mmHg 2016-09-30 Blood pressure diastolic 80 mmHg 2016-09-30 MEDICATIONS No Known Medications RESULTS No Results PROCEDURES No Known procedures INSTRUCTIONS MEDICATIONS ADMINISTERED No Known Medications MEDICAL (GENERAL) HISTORY Type Description Date Surgical History right inguinal hernia repair Hospitalization History right inguinal hernia repair
--- OUTSIDE RECORDS SUMMARY | 2017-12-02 08:54 | XMS REPORT ---
Author Author TANNER GRAY Organization [facility] Address [address] [place] [address] Care Team Providers Care Modeling Teacher Name Role Phone TANNER GRAY Unavailable PROBLEMS Type Condition ICD9-CM Code XXB39-QC Code Onset Dates Condition Status SNOMED Code Problem Primary localized osteoarthrosis, lower leg 715.16 Active 762858697 Problem Chronic airway obstruction, not elsewhere classified 496 Active 56929961 Problem Other specified disorders of rotator cuff syndrome of shoulder and allied disorders 726.19 Active 8666822 Problem Chondromalacia 733.92 Active 38780999 Problem Pain in joint, lower leg 719.46 Active 106111698 Problem Chronic obstructive pulmonary disease with (acute) exacerbation J44.1 Active 520320589 Problem Mood disorder F39 Active 96925218 Problem Other and unspecified hyperlipidemia 272.4 Active 21557345 Problem Obstructive chronic bronchitis, with (acute) exacerbation 491.21 Active 491811785 Problem Pain in unspecified knee M25.569 Active 249895245 Problem Slow transit constipation K59.01 Active 24286194 ALLERGIES No Information ENCOUNTERS Encounter Location Date Diagnosis [facility] [id number] [place] [address] Mar, Rib pain on right side R07.81 [facility] [id number] [place] [address] Jan, Mood disorder F39 [facility] [id number] [place] [address] Dec, [facility] [id number] [place] [address] Dec, Spider bite T63.301A [facility] [id number] [place] [address]- [address] Dec, Mood disorder F39 [address] [place] [id number] Nov, Mood disorder F39 ; Chondromalacia 733.92 and Chronic seasonal allergic rhinitis due to other allergen J30.2 [facility] [id number] [place] [address] Nov, [facility] [id number] [place] [address] Nov, Chronic obstructive pulmonary disease with (acute) exacerbation J44.1 [facility] [id number] [place] [address] Nov, Mood disorder F39 [address] [place] [id number] Nov, Personal history of other diseases of the digestive system Z87.19 ; Other specified postprocedural states Z98.890 and Mood disorder F39 [place] [id number] [place] [address]- [address] Oct, Chronic mood disorder F34.9 [place] [id number] [place] [address]- 58[address] Oct, Pain in unspecified knee M25.569 [address] [place] [id number] Oct, Slow transit constipation K59.01 ; Other specified postprocedural states Z98.890 and Abdominal pain, right lower quadrant R10.31 [place] [id number] [place] [address]- [address] Oct, [place] [id number] [place] [address]- 14[address] Sep, Non-recurrent unilateral inguinal hernia without obstruction or gangrene K40.90 [place] [id number] [place] [address]50- 8893 Jun, [place] [id number] [place] [address]- 7896 Jun, [place] [id number] [place] [address] [place] [address] May, [facility] [address] [id number] [place] [address] May, [facility] [address] [facility] [id number] [place] [address]- 3[address] Mar, [facility] [address] [facility] [id number] [place] [address]- 4777 Mar, [facility] [address] [id number] [place] [address]- 5968 Feb, [facility] [address] [id number] [place] [address] Feb, [facility] [address] [facility] [id number] [place] [address] Feb, [facility] [address] [facility] [id number] [place] [address]- 5700 Feb, [facility] [address] [facility] [id number] [place] [address]5 July, [facility] [address] [facility] [id number] [place] [address]- 5265 July, [facility] [address] [facility] [id number] [place] [address]15 July, [facility] [address] [facility] [id number] [place] [address]- 8407 July, [facility] [address] [facility] [id number], [place] [address] Jun, [facility] [address] [id number], [place] [address] Jun, [facility] [address] [facility] [id number] [place] [address]28 Jun, [facility] [address] [facility] [id number], [place] [address] Jun, IMMUNIZATIONS No Known Immunizations SOCIAL HISTORY Never Assessed REASON FOR VISIT c/o PLAN OF CARE VITAL SIGNS MEDICATIONS No Known Medications RESULTS No Results PROCEDURES No Known procedures INSTRUCTIONS MEDICATIONS ADMINISTERED No Known Medications MEDICAL (GENERAL) HISTORY Type Description Date Surgical History right inguinal hernia repair Hospitalization History right inguinal hernia repair
--- OUTSIDE RECORDS SUMMARY | 2017-12-02 08:56 | XMS REPORT | Continuity of Care Document ---
Author Author [facility] Address Unknown Phone Unavailable Allergies Active Description Code Type Severity Reaction Onset Reported/Identified Relationship to Patient Clinical Status Yes codeine Drug Allergy N/A N/A 07/18/2013 Yes No Known Drug Allergies [id number] Drug Allergy Unknown N/A 11/03/2015 Yes codeine [id number] Drug Allergy Severe SWOLLEN LIPS 10/11/2016 Medications There is no data. Problems Date Dx Coded Attending Type Code Diagnosis Diagnosed By 07/18/2013 OLVIN PATRICK MD N 491.21 BRONCHITIS AECB 07/18/2013 OLVIN PATRICK MD N 496 CHRONIC AIRWAY OBSTRUCTION NOT ELSEWHERE CLASSIFIED 07/18/2013 OLVIN PATRICK MD N 715.16 OSTEOARTHROSIS LOCALIZED PRIMARY INVOLVING LOWER LEG 07/18/2013 OLVIN PATRICK MD N 726.19 OTHER SPECIFIED DISORDERS OF BURSAE AND TENDONS IN SHOULDER REGION 07/18/2013 MADL STRAWHAT BLOCKING OPERATOR, LEATHA L 491.21 BRONCHITIS AECB 07/18/2013 NOEMI STRAWHAT BLOCKING OPERATOR, LEATHA L 496 CHRONIC AIRWAY OBSTRUCTION NOT ELSEWHERE CLASSIFIED 07/18/2013 MADDante ARNOLD LEATHA L 715.16 OSTEOARTHROSIS LOCALIZED PRIMARY INVOLVING LOWER LEG 07/18/2013 NOEMI ARNOLD LEATHA L 726.19 OTHER SPECIFIED DISORDERS OF BURSAE AND TENDONS IN SHOULDER REGION 07/19/2013 OLVIN PATRICK MD N 272.4 HYPERLIPIDEMIA 07/19/2013 MADL STRAWHAT BLOCKING OPERATOR, LEATHA L 272.4 HYPERLIPIDEMIA 03/12/2014 MADL STRAWHAT BLOCKING OPERATOR, LEATHA L 719.46 PAIN IN JOINT INVOLVING LOWER LEG 11/03/2015 TANNER KAMARA DO, Ot F12.10 CANNABIS ABUSE, UNCOMPLICATED 11/03/2015 TANNER KAMARA DO, Ot F15.10 OTHER STIMULANT ABUSE, UNCOMPLICATED 11/03/2015 TANNER KAMARA DO, Ot R55 SYNCOPE AND COLLAPSE 11/04/2015 ANH DO, TANNER D Ot F12.10 CANNABIS ABUSE, UNCOMPLICATED 11/04/2015 ANH TANNER ZHU Ot F15.10 OTHER STIMULANT ABUSE, UNCOMPLICATED 11/04/2015 ANH DO TANNER Treva Ot R55 SYNCOPE AND COLLAPSE 11/05/2015 ANH TANNER ZHU Ot F12.10 CANNABIS ABUSE, UNCOMPLICATED 11/05/2015 ANH TANNER Treva Ot F15.10 OTHER STIMULANT ABUSE, UNCOMPLICATED 11/05/2015 ANH TANNER ZHU Ot R55 SYNCOPE AND COLLAPSE 09/30/2016 KOLTON ANDRADE MD Ot F17.210 NICOTINE DEPENDENCE, CIGARETTES, UNCOMPL 09/30/2016 KOLTON ANDRADE MD Ot J43.9 EMPHYSEMA, UNSPECIFIED 09/30/2016 KOLTON ANDRADE MD Ot K40.90 UNIL INGUINAL HERNIA, W/O OBST OR GANGR, 09/30/2016 KOLTON ANDRADE MD Ot N50.89 OTHER SPECIFIED DISORDERS OF THE MALE GE 09/30/2016 KOLTON ANDRADE MD Ot Z98.890 OTHER SPECIFIED POSTPROCEDURAL STATES 10/04/2016 KOLTON ANDRADE MD Ot F17.210 NICOTINE DEPENDENCE, CIGARETTES, UNCOMPL 10/04/2016 KOLTON ANDRADE MD Ot J43.9 EMPHYSEMA, UNSPECIFIED 10/04/2016 KOLTON ANDRADE MD Ot K40.90 UNIL INGUINAL HERNIA, W/O OBST OR GANGR, 10/04/2016 KOLTON ANDRADE MD Ot N50.89 OTHER SPECIFIED DISORDERS OF THE MALE GE 10/04/2016 KOLTON ANDRADE MD Ot Z98.890 OTHER SPECIFIED POSTPROCEDURAL STATES 10/11/2016 CHRIS CONLEY DO Ot K40.90 UNIL INGUINAL HERNIA, W/O OBST OR GANGR, 10/11/2016 CHRIS CONLEY DO Ot Z01.818 ENCOUNTER FOR OTHER PREPROCEDURAL EXAMIN 10/11/2016 CHRIS CONLEY DO Ot Z11.2 ENCOUNTER FOR SCREENING FOR OTHER BACTER 10/12/2016 CHIRS CONLEY DO Ot K40.90 UNIL INGUINAL HERNIA, W/O OBST OR GANGR, 10/12/2016 CHRIS CONLEY DO Ot Z01.818 ENCOUNTER FOR OTHER PREPROCEDURAL EXAMIN 10/12/2016 CHRIS CONLEY DO Ot Z11.2 ENCOUNTER FOR SCREENING FOR OTHER BACTER 10/13/2016 JARVIS ZHUCHRIS Ot J44.9 CHRONIC OBSTRUCTIVE PULMONARY DISEASE, U 10/13/2016 JARVIS ZHUCHRIS Ot K21.9 GASTRO-ESOPHAGEAL REFLUX DISEASE WITHOUT 10/13/2016 JARVIS ZHUCHRIS Ot K40.30 UNIL INGUINAL HERNIA, W OBST, W/O GANGR, 12/15/2016 DANELLE GALLARDO APRN, Ot J43.9 EMPHYSEMA, UNSPECIFIED 12/15/2016 DANELLE GALLARDO APRN Ot K21.9 GASTRO-ESOPHAGEAL REFLUX DISEASE WITHOUT 12/15/2016 DANELLE GALLARDO APRN Ot M19.90 UNSPECIFIED OSTEOARTHRITIS, UNSPECIFIED 12/15/2016 DANELLE GALLARDO APRN Ot R07.89 OTHER CHEST PAIN 12/15/2016 DANELLE GALLARDO APRN Ot Z87.19 PERSONAL HISTORY OF OTHER DISEASES OF Procedures Code Description [place] [address] ROUTINE VENIPUNCTURE 07/18/2013 47059 A1C (IN-HOUSE) 07/18/2013 12710 LIPID PANEL 07/18/2013 54776 XRAY KNEE RIGHT 3 VIEWS 07/18/2013 73756 OXIMETRY 07/18/2013 52514 XRAY KNEE LEFT 3 VIEWS 03/12/2014 ORTHOPEDJAYY CARTWRIGHT 03/12/2014 Results Test Result Range Complete blood count (CBC) with automated white blood cell (WBC) differential - 11/03/15 13:20 Blood leukocytes automated count (number/volume) 4.9 10*3/uL 4.3-11.0 Blood erythrocytes automated count (number/volume) 4.61 10*6/uL 4.35-5.85 Venous blood hemoglobin measurement (mass/volume) 14.7 [...] Automated blood platelet mean volume measurement 9.3 [foz_us] 7.4-10.4 Automated blood neutrophils/100 leukocytes 58 % [...] Serum or plasma sodium measurement (moles/volume) 135 mmol/L 135-145 Serum or plasma potassium measurement (moles/volume) 3.6 mmol/L 3.6-5.0 Serum or plasma chloride measurement (moles/volume) 105 mmol/L 98-107 Carbon dioxide 26 mmol/L 21-32 Serum or plasma anion gap determination (moles/volume) 4 mmol/L 5-14 Serum or plasma urea nitrogen measurement (mass/volume) 12 mg/dL 7-18 Serum or plasma creatinine measurement (mass/volume) 0.79 mg/dL 0.60-1.30 Serum or plasma urea nitrogen/creatinine mass [...] or plasma troponin i.cardiac measurement (mass/volume) < ng/ mL <0.30 Serum or plasma ethanol measurement (mass/volume) - 11/03/15 13:20 Serum or plasma ethanol measurement (mass/volume) < mg/dL <10 Complete urinalysis with reflex to culture - 11/03/15 15:21 Urine color determination YELLOW NRG Urine clarity determination CLEAR NRG Urine pH measurement by test strip 7 5-9 Specific gravity of urine by test strip 1.010 1.016- 1.022 Urine protein assay by test strip, semi-quantitative [...] Urine pH measurement by test strip 7 5-9 Specific gravity of urine by test strip 1.010 1.016- 1.022 Urine protein assay by test strip, semi-quantitative [...] 19:52 Blood leukocytes automated count (number/volume) 9.1 10*3/uL 4.3-11.0 Blood erythrocytes automated count (number/volume) 4.93 10*6/uL 4.35-5.85 Venous blood hemoglobin measurement (mass/volume) 15.5 [...] Automated blood platelet mean volume measurement 9.5 [foz_us] 7.4-10.4 Automated blood neutrophils/100 leukocytes 68 % [...] Serum or plasma sodium measurement (moles/volume) 139 mmol/L 135-145 Serum or plasma potassium measurement (moles/volume) 4.1 mmol/L 3.6-5.0 Serum or plasma chloride measurement (moles/volume) 106 mmol/L 98-107 Carbon dioxide 25 mmol/L 21-32 Serum or plasma anion gap determination (moles/volume) 8 mmol/L 5-14 Serum or plasma urea nitrogen measurement (mass/volume) 16 mg/dL 7-18 Serum or plasma creatinine measurement (mass/volume) 0.87 mg/dL 0.60-1.30 Serum or plasma urea nitrogen/creatinine mass [...] plasma albumin measurement (mass/volume) 3.9 g/dL 3.2-4.5 Methicillin resistant Staphylococcus aureus (MRSA) screening culture - 14:30 Methicillin resistant Staphylococcus aureus (MRSA) screening culture NEG NRG Complete blood count (CBC) with automated white blood cell (WBC) differential - 12/15/16 19:35 Blood leukocytes automated count (number/volume) 8.8 10*3/uL 4.3-11.0 Blood erythrocytes automated count (number/volume) 4.91 10*6/uL 4.35-5.85 Venous blood hemoglobin measurement (mass/volume) 15.3 g/dL 13.3-17.7 Blood hematocrit (volume fraction) 43 % 40-54 Automated erythrocyte mean corpuscular volume 88 [foz_us] 80-99 Automated erythrocyte mean corpuscular hemoglobin (mass per erythrocyte) 31 pg 25-34 Automated erythrocyte mean corpuscular hemoglobin concentration measurement ( mass/volume) 36 g/dL 32-36 Automated erythrocyte distribution width ratio 12.5 % 10.0-14.5 Automated blood platelet count (count/volume) 307 10*3/uL 130-400 Automated blood platelet mean volume measurement 9.7 [foz_us] 7.4-10.4 Automated blood neutrophils/100 leukocytes 60 % 42-75 Automated blood lymphocytes/100 leukocytes 30 % 12-44 Blood monocytes/100 leukocytes 7 % 0-12 Automated blood eosinophils/100 leukocytes 2 % 0-10 Automated blood basophils/100 leukocytes 1 % 0-10 Blood neutrophils automated count (number/volume) 5.2 10*3 1.8-7.8 Blood lymphocytes automated count (number/volume) 2.7 10*3 1.0-4.0 Blood monocytes automated count (number/volume) 0.6 10*3 0.0-1.0 Automated eosinophil count 0.2 10*3/uL 0.0-0.3 Automated blood basophil count (count/volume) 0.0 10*3/uL 0.0-0.1 PT panel in platelet poor plasma by coagulation assay - 12/15/16 19:35 Prothrombin time (PT) in platelet poor plasma by coagulation assay 11.8 s 12.2-14.7 INR in platelet poor plasma or blood by coagulation assay 0.9 0.8-1.4 Activated partial thromboplastin time (aPTT) in platelet poor plasma bycoagulation assay - 12/15/16 19:35 Activated partial thromboplastin time (aPTT) in platelet poor plasma bycoagulation assay 26 s 24-35 Fibrin D-dimer FEU measurement in platelet poor plasma (mass/volume) - 19:35 Fibrin D-dimer FEU measurement in platelet poor plasma (mass/volume) 0.28 ug/mL 0.00-0.49 Comprehensive metabolic panel - 12/15/16 19:35 Serum or plasma sodium measurement (moles/volume) 140 mmol/L 135-145 Serum or plasma potassium measurement (moles/volume) 3.8 mmol/L 3.6-5.0 Serum or plasma chloride measurement (moles/volume) 104 mmol/L 98-107 Carbon dioxide 27 mmol/L 21-32 Serum or plasma anion gap determination (moles/volume) 9 mmol/L 5-14 Serum or plasma urea nitrogen measurement (mass/volume) 17 mg/dL 7-18 Serum or plasma creatinine measurement (mass/volume) 1.16 mg/dL 0.60-1.30 Serum or plasma urea nitrogen/creatinine mass ratio 15 NRG Serum or plasma creatinine measurement with calculation of estimated glomerular filtration rate > NRG Serum or plasma glucose measurement (mass/volume) 162 mg/dL 70-105 Serum or plasma calcium measurement (mass/volume) 9.6 mg/dL 8.5-10.1 Serum or plasma total bilirubin measurement (mass/volume) 0.3 mg/dL 0.1-1.0 Serum or plasma alkaline phosphatase measurement (enzymatic activity/volume) 72 U/L 40-136 Serum or plasma aspartate aminotransferase measurement (enzymatic activity/ volume) 18 U/L 5-34 Serum or plasma alanine aminotransferase measurement (enzymatic activity/volume ) 36 U/L 0-55 Serum or plasma protein measurement (mass/volume) 7.6 g/dL 6.4-8.2 Serum or plasma albumin measurement (mass/volume) 4.1 g/dL 3.2-4.5 Magnesium - 12/15/16 19:35 Magnesium 2.0 mg/dL 1.8-2.4 Myoglobin, serum - 12/15/16 19:35 Myoglobin, serum 30.3 ng/mL 10.0-92.0 Serum or plasma troponin i.cardiac measurement (mass/volume) - 12/15/16 19:35 Serum or plasma troponin i.cardiac measurement (mass/volume) < ng/ mL <0.30 Myoglobin, serum - 12/15/16 19:35 Myoglobin, serum 30.3 ng/mL 10.0-92.0 Serum or plasma troponin i.cardiac measurement (mass/volume) - 12/15/16 21:35 Serum or plasma troponin i.cardiac measurement (mass/volume) < ng/ mL <0.30 Encounters ACCT No. Visit Date/Time Discharge Status Pt. Type Provider Facility Loc./Unit Complaint [id number] 03/12/2014 10:38:00 03/12/2014 23:59:59 CLS Outpatient PETER FRANKLIN APRNNYPepito Howell [id number] 07/18/2013 09:36:00 07/18/2013 23:59:59 CLS Outpatient OLVIN PATRICK MD [id number] 12/15/2016 19:32:00 12/15/2016 22:19:00 DIS Emergency DANELLE GALLARDO APRN [facility] ER CHEST PAIN [id number] 10/13/2016 07:56:00 10/13/2016 13:36:00 DIS Outpatient CHRIS CONLEY DO [facility] RIGHT INGUINAL HERNIA REPAIR [id number] 10/11/2016 08:34:00 10/11/2016 14:28:00 DIS Outpatient CHRIS CONLEY DO [facility] PREOP HERNIA [id number] 09/30/2016 18:24:00 09/30/2016 22:55:00 DIS Emergency KOLTON ANDRADE MD [facility] ER PT FELL X3 DAYS AGO/ HERNIA [id number] 11/03/2015 13:46:00 11/03/2015 16:00:00 DIS Emergency TANNER KAMARA DO [facility] ER DIZZINESS/POSS SYNCOPAL EPISODE [id number] 06/21/2013 11:13:00 06/21/2013 23:59:59 CLS Outpatient [id number] 10/19/2017 13:30:00 10/19/2017 23:59:59 CLS Outpatient TANNER GRAY APRN [facility]
[2017-12-02] MEDS ORDERED: LIDOCAINE 1% INJ 20 ML 20 ML VIAL INJ ONE (10:45)
[2017-12-02 10:55] LABS: BASOPHILS % (AUTO) 0 % (0-10); EOSINOPHILS # (AUTO) 0.2 10^3/uL (0.0-0.3); EOSINOPHILS % (AUTO) 3 % (0-10); HEMATOCRIT 44 % (40-54); HEMOGLOBIN 15.2 G/DL (13.3-17.7); LYMPHOCYTES # (AUTO) 1.3 X 10^3 (1.0-4.0); LYMPHOCYTES % (AUTO) 18 % (12-44); MEAN CORPUSCULAR HEMOGLOBIN 32 PG (25-34); MEAN CORPUSCULAR HGB CONC 35 G/DL (32-36); MEAN CORPUSCULAR VOLUME 91 FL (80-99); MEAN PLATELET VOLUME 9.8 FL (7.4-10.4); MONOCYTES # (AUTO) 0.6 X 10^3 (0.0-1.0); MONOCYTES % (AUTO) 9 % (0-12); NEUTROPHILS # (AUTO) 4.9 X 10^3 (1.8-7.8); NEUTROPHILS % (AUTO) 69 % (42-75); PLATELET COUNT 201 10^3/uL (130-400); RED BLOOD COUNT 4.82 10^6/uL (4.35-5.85); RED CELL DISTRIBUTION WIDTH 13.5 % (10.0-14.5); WHITE BLOOD COUNT 7.1 10^3/uL (4.3-11.0)
[2017-12-02 11:13] LABS: ALANINE AMINOTRANSFERASE 57 U/L (0-55); ALBUMIN 3.8 GM/DL (3.2-4.5); ALKALINE PHOSPHATASE 46 U/L (40-136); BILIRUBIN,TOTAL 0.9 MG/DL (0.1-1.0); BUN/CREATININE RATIO 21; CALCIUM 8.7 MG/DL (8.5-10.1); CARBON DIOXIDE 24 MMOL/L (21-32); CHLORIDE 108 MMOL/L (98-107); CREATININE SERUM 0.84 MG/DL (0.60-1.30); GFR ESTIMATED > 60; GLUCOSE 103 MG/DL (70-105); POTASSIUM 4.1 MMOL/L (3.6-5.0); SODIUM 139 MMOL/L (135-145); TOTAL PROTEIN 6.9 GM/DL (6.4-8.2)
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
[2017-12-02 11:31] LABS: ERYTHROCYTE SEDIMENTATION RATE 8 MM/HR (0-30)
[2017-12-02] MEDS ORDERED: SULF1TAB35 PO (11:32)
[2017-12-02] MEDS ORDERED: HYDR-4226 PO (11:32)
[2017-12-02] MEDS ORDERED: CEPH-507 PO (11:32)
[2017-12-02] MEDS ORDERED: HYDROcodone/APAP 5 MG/325 MG (LORTAB) TAB PO ONE (11:45)
[2017-12-02 11:51] LABS: BODY FLUID APPEARENCE MOD BLDY; BODY FLUID COLOR YELLOW; BODY FLUID SOURCE L KNEE; BODY FLUID WBC TOTAL COUNT 400 /uL
[2017-12-02 11:52] LABS: BODY FLUID RBC COUNT 2950 /uL
[2017-12-02] MEDS ORDERED: PRD20T PO (11:59)
[2017-12-02 12:25] VITALS: BP 131/98
[2017-12-02 13:00] LABS: BF OTHER CELLS 0 %; LYMPHOCYTES,BODY FLUID 95 %
== END 2017-12-02 12:25 | disposition home or self-care (01) ==
LOC: EDUNIT# 08:32 → ER 08:34
DX: M25.461 Effusion, right knee (principal); M25.462 Effusion, left knee; L03.031 Cellulitis of right toe; L03.032 Cellulitis of left toe; K21.9 Gastro-esophageal reflux disease without esophagitis; Z79.51 Long term (current) use of inhaled steroids; Z79.52 Long term (current) use of systemic steroids; Z98.890 Other specified postprocedural states; Z88.5 Allergy status to narcotic agent
CPT/HCPCS: 20610; 36415; 80053; 85025; 85652; 86141; 86618; 86666; 86668; 86757; 87070; 87077; 87186; 87205; 89051; 89060

== ENCOUNTER 2022-01-08 10:29 | Emergency (ER) | payer SELFPAY ==
[~2022-01-08] VITALS: Ht 165 cm; Wt 63.0 kg
[~2022-01-08 10:29] MED LIST changes: +AZIT500T PO; +CEFD300C3 PO; +CEPH-507 PO; +HYDR-4226 PO; +METH4TAB PO; +PRD20T PO; +SULF1TAB38 PO
[2022-01-08] MEDS ORDERED: fentaNYL INJ 100 MCG/2 ML AMP ONE (10:38)
[2022-01-08] MEDS ORDERED: ceFAZolin INJECTION 2,000 MG in NS (IVPB) 50 ML IV ONE (10:45)
[2022-01-08] MEDS ORDERED: fentaNYL INJ 100 MCG/2 ML AMP IVP PRN (10:45)
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
--- NOTE | 2022-01-08 11:40 | Diagnostic Imaging Report ---
INDICATION: Pain status post injury. COMPARISON: None. FINDINGS: Three radiographic views of the right hand were obtained. There is acute-appearing deformity to the distal portions of the second and third digits. Unfortunately, extent of the injury is obscured due to positioning. There does appear to be acute comminuted fracture involving the middle phalanx of the third finger. There does appear to be moderate angulation with the apex projecting posteriorly. Patient also appears to be status post partial amputation of the distal phalanx of the second digit. IMPRESSION: 1. Gross deformity to the distal portions of the second and third digits of the right hand. Again, details of the injury are poorly defined due to positioning and overlapping of osseous and soft tissue structures. Dictated by: Dictated on workstation # [id number]
[2022-01-08] MEDS ORDERED: OXYC1TAB16 PO (11:46)
[2022-01-08] MEDS ORDERED: CLIN-144 PO (11:47)
[2022-01-08 12:08] VITALS: BP 130/85
== END 2022-01-08 12:08 | disposition home or self-care (01) ==
LOC: EDUNIT# 10:29 → ER 10:31
DX: S56.421A Laceration of extensor muscle, fascia and tendon of right index finger at forearm level, initial encounter (principal); S68.120A Partial traumatic metacarpophalangeal amputation of right index finger, initial encounter; Z72.0 Tobacco use; Z28.310 Unvaccinated for COVID-19; X58.XXXA Exposure to other specified factors, initial encounter; Y92.59 Other trade areas as the place of occurrence of the external cause; Y99.0 Civilian activity done for income or pay
CPT/HCPCS: 11010; 12042; 29125; 64450; 73130